=== PATIENT | male | born 1965 | race Asian ===

== ENCOUNTER 2024-07-26 07:52 | Inpatient (IN) ==
--- NOTE | 2024-07-26 08:05 | Pre Anesthesia Assessment ---
Date of Service July 26, 2024 Pre Sedation Assessment Vital Signs Temp Pulse Resp BP Pulse Ox O2 Del Method 07/26/24 08:04 107 H 07/26/24 07:54 97.9 F 102 H 23 183/115 H 95 Room Air 07/26/24 07:54 Room Air Cardiovascular + tachycardic Respiratory + respiratory effort normal Pre-Sedation Airway Assessment Smoking Status: Never smoker Hx Sleep Apnea: No Hx Difficult Intubation: No Thyromental Distance: > or= 3.5 Finger Breadths Oral Cavity: + Dental Abnormalities Mallampati Class: III ASA: ASA4 Procedure Planning Contraindications for Sedation: none Current Medications Reviewed: Yes Notes The planned sedation has been discussed with the patient. Informed Consent was obtained. I have identified the patient, determined the appropriateness of sedation and have assessed the patient immediately prior to the procedure. All medicine(s) and interventions are by my order.
--- NOTE | 2024-07-26 08:07 | Cardiology Consultation ---
Date of Consultation July 26, 2024 Assessment & Plan (1) STEMI (ST elevation myocardial infarction): Presentation consistent with anterior STEMI and recommend proceeding with emergent cardiac catheterization and likely primary PCI. No apparent contraindications to procedure. Discussed risks, benefits, alternatives of procedure with patient and they are willing to proceed. Further recommendations pending findings of coronary angiography. History of Present Illness History of Present Illness 58-year-old man here with acute chest pain and ECG concerning for acute PR. Patient seen emergently in the ED after heart alert activated en route. No prior cardiac history. Cardiac risk factors include hypertension. Denies other significant medical problems. Chest pain began approximately 1 hour prior to arrival. Denies similar symptoms in the past. Patient with ongoing 10 out of 10 chest pain despite 12 of morphine with EMS/in ED. Hemodynamically stable. ECG showed anterior ST elevations. Patient History Social History Smoking Status: Never smoker Preferred Language: [place] Island[place] Feels Safe at Home: Yes Review of Systems Review of Systems: Not obtained in the setting of emergency situation Physical Exam Physical Exam: General: In severe pain HEENT: Sclerae anicteric Lungs: Clear anteriorly Cardiac: Tachycardic, regular Vascular: 2+ radial Abdomen: Soft Extremities: Well perfused, no peripheral edema Neuro: Nonfocal Psych: Alert orient x3 Results & Data Vital Signs (Past 12 Hours) Vital Signs Temp Pulse Resp BP Pulse Ox O2 Del Method 07/26/24 08:04 107 H 07/26/24 07:54 97.9 F 102 H 23 183/115 H 95 Room Air 07/26/24 07:54 Room Air PG Care Time/CCT Total # of Minutes Spent Total Time Spent with Patient: Total time spent is greater than 50% in coordination of care (as documented) at patient's floor/unit and/or counseling patient: Coding Level of Care Code 52591 OFFICE CONSULT LVL Diagnoses STEMI (ST elevation myocardial infarction) I21.3
[2024-07-26] MEDS: fentaNYL citrate PF 100 MCG/2 ML VIAL ONE (08:49)
[2024-07-26] MEDS: MIDAZOLAM HCL 1 MG/ML 2ML VIAL ONE (08:50)
[2024-07-26] MEDS: HEPARIN (PORCINE) 1000 UNIT/ML 10 ML (CATH LAB USE ONLY) ONE ×2 (08:50→08:53)
[2024-07-26] MEDS: OPTIRAY 350 ONE (08:51)
[2024-07-26] MEDS ORDERED: ACETAMINOPHEN 325 MG TAB PO PRN (08:51)
[2024-07-26] MEDS: niCARdipine HCL INJ 2.5 MG/ML 10 ML AMP ONE (08:51)
[2024-07-26] MEDS: TICAGRELOR 90 MG TAB ONE (08:52)
[2024-07-26] MEDS: NITROGLYCERIN/D5W 100MCG/ML 20ML SYR ONE (08:52)
[2024-07-26] MEDS: ONDANSETRON INJ 2 MG/ML 2 ML VIAL ONE (08:52)
[2024-07-26] MEDS: FUROSEMIDE 40 MG/4 ML VIAL IV ONE (08:53)
--- NOTE | 2024-07-26 09:03 | Post Anesthesia Assessment ---
Date of Service July 26, 2024 Post Sedation Assessment Vital Signs Temp Pulse Resp BP Pulse Ox O2 Del Method 07/26/24 08:04 107 H 07/26/24 07:54 97.9 F 102 H 23 183/115 H 95 Room Air 07/26/24 07:54 Room Air Recovery Score Activity: Moves 4 extremities Respiration: Deep Breath/Cough Circulation: +/-20% PreAnes Value Consciousness: Fully Awake Oxygen Saturation: O2 needed for >90% Discharge Sedation Level of Care: Fast Track Phase II Post Sedation Plan On clinical assessment, the patient appears to have tolerated the sedation without complications. Patient is recovering as anticipated. Patient will continue to be monitored by nursing and may be discharged when sedation discharge criteria are met per below protocol. Upon Completions of procedure up to 15 minutes continue every 5 minute vital signs and the P.A.R. score; then discharge to a Phase I or Fast Track to Phase II per the following guidelines: * Discharge Patient to appropriate Phase II area if PAR is 8 or greater or ret urn to pre- procedure baseline. The post - procedure orders will be as directed. * If PAR score is less than 8 or not return to pre-procedure baseline then patient will follow Phase I monitoring till PAR is reached for Phase II. The Phase I may be done in procedure room or may call to secure a Phase I area. * If naloxone or flumazenil are used for reversal, hold in Phase I for continued monitoring from when last reversal dose was given for a minimum of 60 minutes or longer pending the nurse and/or physician discretion of patient condition before discharge to Phase II. Please call the Sedation Physician to re-evaluate and complete post-note for discharge to Phase II area. Do NOT discharge from procedure sedation or Phase 1 until post- sedation evaluation note is complete by procedure /sedation MD Sedation Discharge Instructions to be given to the patient at discharge to home.
[2024-07-26] MEDS ORDERED: Patient's ALLERGY Info needs ENTERED SCH (09:15)
[2024-07-26] MEDS: METOPROLOL TARTRATE 1 MG/ML VIAL IV ONE (09:17)
--- NOTE | 2024-07-26 09:26 | Cardiac Catheterization ---
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 Cardiac Status Clinical evaluation leading to the procedure CAD Presenation: STEMI Anginal Classification: CCS IV Diagnostic Physicians Name: Ken Rhodes MD Closure Device Recommendations: PCI without planned CABG Cardiac Cath Procedure Full Procedure Date July 26, 2024 Pre-Procedure Diagnosis Pre-Procedure Diagnosis: STEMI AUC Score AUC Score: 9 Post-Procedure Diagnosis Post-Procedure Diagnosis: Severe CAD, Successful PCI and Elevated Intracardiac Pressures Procedure(s) Performed Procedure(s) Performed: Coronary Angiography, Left Heart Cath and Drug Eluting Stent Dental Technician Metal Ken Rhodes MD Senior Commercial Loan Officer(s) Keo Estimated Blood Loss Estimated Blood Loss: 20 Medication(s) Medication(s): Fentanyl, Heparin, Lidocaine 1%, Nicardipine, Nitroglycerin and Versed Medication(s): Ticagrelor Summary of Findings Indication: STEMI/Heart Alert Access: 6 Fr right radial artery Catheters: EBU 3.5 guide, JR4 Findings: LM -normal caliber, 20-30% distal LAD -medium caliber, 30% ostial, 40-50% calcified proximal stenosis. Acute 100% mid LAD occlusion after takeoff of small D2. Circumflex -medium caliber 30% proximal disease, 50% proximal stenosis and mediu m OM 2. RCA -dominant, large caliber, 30% lateproximal and mid segment disease. 90% ostial RPDA. Large RPLB without significant disease. LVEDP -35 -- PCI -- Antithrombotic therapy: Heparin, ticagrelor Procedure: Left main cannulated with EBU 3.5 guide Ore Mixer 50 wire passed across lesion into distal vessel Mid LAD lesion predilated with 2.5 compliant balloon Dilated lesion stented with 3.0 x 38 mm Jeremie drug-eluting stent Stent post-dilated with 3.5 noncompliant balloon IC vasodilators administered for spasm Residual at least moderate stenosis in proximal LAD stented with second JESSI (3.0 x 18 mm Jeremie) overlapping proximal aspect of initial stent Stent post dilated with 3.5 NC Post procedure ROSANNA 3 flow, stents well expanded with minimal residual stenosis and no apparent cardiac complications. Severe residual stenosis and small jailed D3 with ROSANNA II flow Arterial Closure: TR band Summary: 1. Anterior STEMI/100% acute occluded mid LAD 2. Moderate to severe non-culprit coronary artery disease - 25 % distal left main 50% proximal OM 2 90% ostial RPDA 3. Elevated intracardiac filling pressure 4. Successful PCI of proximal to mid LAD with 2 overlapping drug-eluting stents (3.0 x 18, 3.0 x 38 mm [place]; postdilated with 3.5 NC). Recommendations: Admit to ICU for continued monitoring Loaded with ticagrelor 180 mg in [employer] Operator Continue dual-antiplatelet therapy for at least 1 year. 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 Medical management of residual coronary artery disease. Hemodynamics Rest Ao:: 181/119/154 Final Ao: 150/100/2024 LV: 144/35 Recommendations Recommendations: PCI without planned CABG Specimens Specimens: None Radiation Exposure (mGy) 1678 Contrast (mls) 100 Anesthesia Moderate [id number] Procedural Complication(s) None Disposition ICU I attest to the content of the Intraoperative Record and any orders documented therein. Any exceptions are noted below. [facility] Card Cath Procedure Codes Cardiac Catheterization Procedure 1: Cardiovascular Cath Procedures: 04259 Coronaries and LHC (+/-LV) Moderate Sedation Procedure 1: Sedation/Anesthesia: 50528 Mod Sedation by the same physician;Init15 Min Child Age 5 & Up Procedure 2: Sedation/Anesthesia: 65970 Mod Sedation by the same physician; Ea Add [id number] Minutes Stenting Procedure 1: Cardiovascular Stent Procedures: 66512 Perc transluminal revascularization of acute sub/total occl, aMI PG Care Time/CCT Total # of Minutes Spent Total Time Spent with Patient: Total time spent is greater than 50% in coordination of care (as documented) at patient's floor/unit and/or counseling patient:
--- NOTE | 2024-07-26 09:28 | History & Physical Report ---
Date of Service July 26, 2024 Assessment & Plan (1) STEMI (ST elevation myocardial infarction): Plan: Crushing chest pain with radiation to the back that began the morning of 07/26 shortly after waking EKG revealed anterior STEMI on arrival Heart alert was called Patient was taken emergently to the [facility] [employer] with Dr. Rhodes Anterior STEMI/100% acute occlusion of mid LAD Successful PCI of proximal to mid LAD with JESSI x 2 Echocardiogram ordered, pending No prior history of MD Patient does have a family history of MD (both mother and father had heart attacks in their 60s) Hx of HTN and HLD He reports he currently takes losartan and cholesterol medication (?At orvastatin) No PMHx of DM, PVD, MD, or DVT/PE Cardiology consult appreciated Atorvastatin, Brilinta, aspirin, metoprolol, losartan, and pantoprazole Trend troponin q6h A.m. CBC, BMP, A1c, fasting lipid panel (2) Hypertension: (3) Hyperlipidemia: Plan Disposition: Admit to ICU Full code Heart healthy, vegetarian diet VTE PPx: Will defer to ICU Admission and Anticipated Discharge Date Admission Date: July 26, 2024 History of Present Illness Chief Complaint: Chest pain Primary Care Provider: NO PCP Tien is a 58-year-old male with unknown PMH. He presented via EMS on the morning of 07/26 for crushing chest pain with radiation to the back. The chest pain started at 0730 this morning. En route, patient received morphine 12 mg IV, Zofran 4 mg IV, nitro spray, and 324 mg of aspirin. Chest pain remained 10 out of 10 despite morphine administration en route. EKG on arrival showed anterior STEMI; heart alert was called, and patient was emergently taken to the [facility] [employer] with Dr. Rhodes. Patient is seen post-cardiac cath. He reports that his pain is 2/10 at present; pain is located at the center/left side of his chest; he reports it is on both sides of his heart. He describes it as an achy pain like a "muscle ache". At this time, his only complaint is that he is tired. He reports that the pain t his morning was much worse. He woke up feeling fine, but then developed crushing pain in his chest shortly after brushing his tree then washing his face around 7 AM. The pain came on acutely. Radiation to the upper back. No radiation to the shoulders/jaw/arms. No prior history of MD or similar past episodes. The chest pain was not positional or pleuritic. No PMH of DM, PVD, or DVT/PE. He does have a history of hypertension and HLD, for which she takes losartan and a cholesterol medication daily (he believes this is atorvastatin, but is unsure). He also does have a family history of cardiac disease. Both his mother and his father had MIs in their 60s. No family members with MD or sudden cardiac that less than 55 years old. Patient denies smoking, tobacco use, alcohol use, or recreational drug use. No supplemental oxygen at baseline. Additionally, he reports that he does have a history of carpal tunnel in his right wrist, but is not having any numbness or tingling in his wrist at this time. Patient is mildly hypertensive at 152/101; SpO2 92% on 2L NC. Postcatheterization ROS: Patient endorses mild chest pain (2/10), generalized fatigue, and some nausea. Patient denies fever, chills, sweats, headache, crushing chest pain (as before), chest palpitations, SOB, cough, abdominal pain, vomiting, or numbness or tingling in the arms or legs. Allergies Allergy/AdvReac Type Severity Reaction Status Date / Time No Known Allergies Allergy Unverified 07/26/24 10:17 Past Med/Surg History Problem List (Updated 07/26/24 @ 15:14 by Cailin Vasquez MD) Hyperlipidemia Hypertension STEMI (ST elevation myocardial infarction) (Acute) Social History Smoking Status: Never smoker Hx Alcohol Use: No Hx Substance Use: No Preferred Language: Turkmen Communication Ability: Effective Office Secretary Required: No Beliefs That Will Affect Care: None Current Living Situation: Spouse Feels Safe at Home: Yes Safety Concerns: Feels Safe At This Time Review of Systems Review of Systems: See HPI above Physical Exam Physical Exam: General: no acute distress; pleasant affect; fatigued; non-toxic appearing; well-nourished; cooperative; SpO2 92% on 2L NC HEENT: normocephalic, atraumatic; no scleral icterus; PERRLA; vision and hearing grossly intact Neck: supple; no lymphadenopathy; trachea midline Skin: warm, dry without signs of tenting; no cyanosis; no rashes, bruising, lesi ons, or erythema noted CV: chest wall NTP; RRR; S1/S2 normal; no murmurs/rubs/gallops; pulses intact and symmetric at radial, DP, and PT RUE: Patient demonstrates ability to wiggle right fingers, and reports sensation is intact and symmetric in the right hand Lungs: no acute respiratory distress; symmetrical chest wall expansion; clear breath sounds across all lung zaman w/o adventitious sounds; no wheezing ABD: Soft, upper stomach is mildly TTP; BS present; no rebound/guarding; no distention MSK: no tics or fasciculations; no edema noted in the LEs b/l, nonerythematous; patient demonstrates ability to wiggle toes bilaterally Neuro: A&Ox3; normal mood and affect; fluent speech; no focal deficits; sensation grossly intact in the LEs b/l Results & Data Results & Data Vital Signs (Past 12 Hours) Vital Signs Temp Pulse Pulse Resp BP BP Pulse Ox 07/26/24 09:10 110 H 20 114/82 90 07/26/24 08:04 107 H 07/26/24 07:54 36.6 C 102 H 23 183/115 H 95 07/26/24 07:54 O2 Del Method O2 Flow Rate 07/26/24 09:10 Nasal Cannula 5 07/26/24 08:04 07/26/24 07:54 Room Air 07/26/24 07:54 Room Air Laboratory Results Abnormal lab results 07/26/24 Range/Units 08:39 Activ Coag Time Kaolin 238 H (94-140) SECONDS ECG Additional Comments: ECG on arrival revealed sinus tachycardia and ST elevation in the anterior leads concerning for STEMI; 105 bpm; QTc 449 Code Status & VTE Plan Code Status Full code VTE Prophylaxis Plan VTE Prophylaxis will be ordered: Yes Supervising Physician Co-Signing Physician Notes I personally examined the patient and verified all delgado points of history and exam, discussed case, and agree with decision making with Jesenia Anne PA-C feeling better with CP - now just a dull ache. stomach a little upset vitals noted nad heent nc at mmm breathing unlabored no accessory muscles good effort skin without rashes pallor or icterus STEMI - s/p stenting -med management -lifestyle change (he actually just recently started on positive changes) otherwise as above PG Care Time/CCT Total # of Minutes Spent Total Time Spent with Patient: Total time spent is greater than 50% in coordination of care (as documented) at patient's floor/unit and/or counseling patient: [place] [address] INT INP/OBS CARE 3/75MIN Patient Type New Medical Decision Making High Complexity Diagnoses STEMI (ST elevation myocardial infarction) I21.3 Hypertension I10 Hyperlipidemia E78.5
[2024-07-26] MEDS: FAMOTIDINE 20MG/5ML IV PUSH IV ONE (09:40)
[2024-07-26] MEDS: ATORVASTATIN 40 MG TAB PO SCH (10:42)
[2024-07-26] MEDS: ASPIRIN 81 MG ECTAB PO SCH (11:38)
[2024-07-26] MEDS: ICU Protocol for HYPERglycemia SCH (11:39)
[2024-07-26] MEDS: LOSARTAN POTASSIUM 25 MG TAB PO SCH (11:39)
[2024-07-26] MEDS: PANTOprazole 40 MG TAB PO SCH (11:39)
[2024-07-26] MEDS: ROSUVASTATIN CALCIUM 20 MG TAB PO SCH (11:39)
--- NOTE | 2024-07-26 15:04 | Emergency Department Note ---
Impression & Plan STEMI (ST elevation myocardial infarction) ED Provider Note CHIEF COMPLAINT: Chest pain, heart alert HISTORY OF PRESENT ILLNESS: This 58-year-old male patient past medical history of hypertension and hyperlipidemia presents to the emergency department with complaints of substernal chest pain that woke him from sleep at approximately 730 this morning. Patient presented by ambulance after receiving aspirin, nitroglycerin and morphine. EKG reveals anterior ST elevation NE. Heart alert was called prior to arrival by my medical command. Patient did receive several doses of morphine and route. He currently denies any history of NE and states he has not a smoker. REVIEW OF SYSTEMS: A review of systems was performed with positives and pertinent negatives listed in the history of present illness. 10 systems were reviewed and are otherwise negative. ALLERGIES: see below MEDICATIONS: see below PMH: see below SOCIAL HISTORY: see below DDx: Acute coronary syndrome, GERD, peptic ulcer disease, pneumothorax, aortic dissection among others. PHYSICAL EXAM: Vital signs reviewed. General: Well-appearing 58-year-old male, in significant discomfort. HEENT: No scleral icterus, PERRLA, neck supple. Moist mucous membranes. Cardiovascular: Regular rate and rhythm, no extra sounds. Pulmonary: Clear to auscultation bilaterally, normal work of breathing. Abdomen: Soft, nontender, nondistended, positive bowel sounds. Musculoskeletal: Atraumatic, no peripheral edema. Neurologic: Patient awake alert and oriented x 3, speech is clear Skin: Warm, dry, no rash EMERGENCY DEPARTMENT COURSE/MDM: This patient was evaluated and appeared to be in no significant distress. a heart alert was called prior to arrival and Dr. Rhodes and the [facility]ork[facility] Techn[facility] team arrived at the patient's bedside patient was taken to the Fork[facility] Techn[facility] immediately for percutaneous intervention. Please see Dr. Vivek marmolejo's notes for further details of the procedure. MONITORING: An order for cardiac monitoring was placed and the patient is noted to be in a sinus tachycardia at 107 beats per minute. EKG: To my interpretation reveals a sinus tachycardia at [address] elevation, inferior ST depression. QTc of 449. DISPOSITION: [facility] Techn[facility] Past Med/Surg History Problem List (Updated 07/26/24 @ 15:14 by Cailin Vasquez MD) Hyperlipidemia Hypertension STEMI (ST elevation myocardial infarction) (Acute) Social History Smoking Status: Never smoker Hx Alcohol Use: No Hx Substance Use: No Preferred Language: Latvian Communication Ability: Effective Resolution Expert Required: No Beliefs That Will Affect Care: None Current Living Situation: Spouse Feels Safe at Home: Yes Safety Concerns: Feels Safe At This Time Allergies Allergies Allergy/AdvReac Type Severity Reaction Status Date / Time No Known Allergies Allergy Unverified 07/26/24 10:17 Results & Data (ED) Vital Signs Vital Signs - 24 hr 07/26/24 07:54 07/26/24 07:54 07/26/24 08:04 Temperature 36.6 C Temperature Source Oral Pulse Rate 102 H 107 H Respiratory Rate 23 Respiratory Effort / Characteristics Non-Labored Spontaneous Non-Labored Spontaneous Respiratory Depth Normal Normal Blood Pressure 183/115 H Blood Pressure Mean 137 Blood Pressure Position Lying Pulse Oximetry 95 Oxygen Delivery Method Room Air Room Air Sepsis Recent Fever Within 48 Hours No Sepsis New/Unexplained Change in Mental Status No Sepsis Action Taken by Nursing Physician Notified Home Medications Current Medication List: was personally reviewed by me Laboratory Data Attestation: I reviewed the patient's lab results. Lab Results 07/26/24 07/26/24 07/26/24 Range/Units 08:22 08:39 08:43 Activ Coag Time Kaolin 238 H 238 H 299 H (94-140) SECONDS Administered Medications Aspirin (Aspirin 81 Mg Ectab) 81 mg PO [facility] Stop: 08/25/24 08:59 Last Admin: 07/26/24 11:38 Dose: 81 mg Documented By: VAHID Losartan Potassium (Losartan Potassium 25 Mg Tab) 25 mg PO QAM [facility] Stop: 08/25/24 12:59 Last Admin: 07/26/24 11:39 Dose: 25 mg Documented By: VAHID Miscellaneous (Icu Protocol For Hyperglycemia) 1 each N/A ACHS [facility] Stop: 07/28/24 11:29 Last Admin: 07/26/24 11:39 Dose: Not Given Documented By: VAHID Pantoprazole Sodium (Pantoprazole 40 Mg Tab) 40 mg PO DAILY [facility] Stop: 08/25/24 08:59 Last Admin: 07/26/24 11:39 Dose: 40 mg Documented By: VAHID Rosuvastatin Calcium (Rosuvastatin Calcium 20 Mg Tab) 20 mg PO QAM [facility] Stop: 08/25/24 09:59 Last Admin: 07/26/24 11:39 Dose: 20 mg Documented By: VAHID Discontinued Medications Atorvastatin Calcium (Atorvastatin 40 Mg Tab) 80 mg PO QAM [facility] Stop: 08/25/24 08:59 Last Admin: 07/26/24 10:42 Dose: Not Given Documented By: VAHID Famotidine (Famotidine 20mg/5ml Iv Push) Confirm Administered Dose 20 mg IV .STK-MED ONE Stop: 07/26/24 09:13 Last Admin: 07/26/24 09:40 Dose: 20 mg Documented By: LAMINE Fentanyl Citrate (Fentanyl Citrate Pf 100 Mcg/2 Ml Vial) Confirm Administered Dose 100 mcg .ROUTE .STK-MED ONE Stop: 07/26/24 07:57 Last Increment: 07/26/24 08:49 Dose: 50 mcg Documented By: MARY Furosemide (Furosemide 40 Mg/4 Ml Vial) Confirm Administered Dose 40 mg IV .STK- MED ONE Stop: 07/26/24 08:45 Last Admin: 07/26/24 08:53 Dose: 40 mg Documented By: MARY Heparin Sodium (Porcine) (Heparin (Porcine) 1000 Unit/Ml 10 Ml ([facility] Technician Use Only)) Confirm Administered Dose 10,000 units .ROUTE .STK-MED ONE Stop: 07/26/24 07:57 Last Admin: 07/26/24 08:50 Dose: 11,000 units Documented By: MARY Heparin Sodium (Porcine) (Heparin (Porcine) 1000 Unit/Ml 10 Ml (Forklift Technician Use Only)) Confirm Administered Dose 10,000 units .ROUTE .STK-MED ONE Stop: 07/26/24 08:27 Last Admin: 07/26/24 08:53 Dose: Not Given Documented By: MARY Heparin Sodium/Sodium Chloride (Heparin In Nss Infusion 1000 Unit/500 Ml (2 U/Ml) Bag) Confirm Administered Dose 3,000 units IV .STK-MED ONE Stop: 07/26/24 07:57 Last Admin: 07/26/24 08:50 Dose: 3,000 units Documented By: RYANNE Ioversol (Optiray 350) Confirm Administered Dose 1 ml .ROUTE .STK-MED ONE Stop: 07/26/24 07:58 Last Admin: 07/26/24 08:51 Dose: 100 ml Documented By: RYANNE Metoprolol Tartrate (Metoprolol Tartrate 1 Mg/Ml Vial) Confirm Administered Dose 5 mg IV .STK-MED ONE Stop: 07/26/24 09:17 Last Admin: 07/26/24 09:17 Dose: 5 mg Documented By: AYAZF Midazolam HCl (Midazolam Hcl 1 Mg/Ml 2ml Vial) Confirm Administered Dose 2 mg .ROUTE .STK-MED ONE Stop: 07/26/24 07:57 Last Admin: 07/26/24 08:50 Dose: 2 mg Documented By: MARY Nicardipine HCl (Nicardipine Hcl Inj 2.5 Mg/Ml 10 Ml Amp) Confirm Administered Dose 25 mg .ROUTE .STK-MED ONE Stop: 07/26/24 07:57 Last Admin: 07/26/24 08:51 Dose: 25 mg Documented By: MARY Nitroglycerin/Dextrose (Nitroglycerin/D5w 100mcg/Ml 20ml Syr) Confirm Administered Dose 2,000 mcg .ROUTE .STK-MED ONE Stop: 07/26/24 07:58 Last Admin: 07/26/24 08:52 Dose: 2,000 mcg Documented By: MARY Ondansetron HCl (Ondansetron Inj 2 Mg/Ml 2 Ml Vial) Confirm Administered Dose 4 mg .ROUTE .STK-MED ONE Stop: 07/26/24 08:40 Last Admin: 07/26/24 08:52 Dose: 4 mg Documented By: MARY Ticagrelor (Ticagrelor 90 Mg Tab) Confirm Administered Dose 180 mg .ROUTE .STK- MED ONE Stop: 07/26/24 08:07 Last Admin: 07/26/24 08:52 Dose: 180 mg Documented By: MARY Discharge Plan Visit Data Chief Complaint: Heart Alert ED Provider: Cailin Vasquez Discharge Problem: STEMI (ST elevation myocardial infarction) Patient Disposition: Admitted As Inpatient Discharge Instructions Interventions: ED Discharge Assessment Last Done: 07/26/24 08:02 Discharge Problem: STEMI (ST elevation myocardial infarction) Qualifiers: Involved coronary artery: LAD coronary artery Qualified Code(s): I21.02 - ST elevation (STEMI) myocardial infarction involving left anterior descending coronary artery
--- NOTE | 2024-07-26 15:31 | Critical Care Consultation ---
Date of Consultation July 26, 2024 Assessment & Plan (1) STEMI (ST elevation myocardial infarction): (2) Hypertension: (3) Hyperlipidemia: Plan Patient hemodynamically stable status post STEMI and cardiac cath with 2 drug- eluting stents to the LAD. Currently on goal-directed therapy with dual antiplatelets, beta-kameron, MAGDALENE inhibitor and high-dose statin therapy. Monitor in the ICU for the next 24 hours. Follow-up telemetry. Trend troponins and follow-up echocardiogram. Will obtain CBC and CMP with next troponin draw. Thank you for the consult. ICU services will continue to follow along with you. Disposition deferred to cardiology. History of Present Illness Reason for Consultation: STEMI Attending Physician: Ivan Woods DO History of Present Illness 58-year-old male with a past medical history of hypertension who was presenting to the hospital via EMS this morning due to chest pain. STEMI alert was called and the patient was taken back to the [facility]. Cath revealed 100% occluded mid LAD and moderate to severe nonculprit coronary artery disease. Successful PCI to the proximal to mid LAD with 2 overlapping drug-eluting stents. Elevated intracardiac filling pressures are noted. He is doing well post cath and has not had any significant hemodynamic issues. He did receive 40 mg of IV Lasix in the [facility]. He had a mild hematoma in his right wrist which is largely resolved with the use of a TR band. Allergies Allergy/AdvReac Type Severity Reaction Status Date / Time No Known Allergies Allergy Unverified 07/26/24 10:17 Patient History Social History Smoking Status: Never smoker Hx Alcohol Use: No Hx Substance Use: No Preferred Language: Barbadian Communication Ability: Effective Merchandise Marker Required: No Beliefs That Will Affect Care: None Current Living Situation: Spouse Feels Safe at Home: Yes Safety Concerns: Feels Safe At This Time Review of Systems Review of Systems: All systems reviewed & are unremarkable except as noted in HPI & below Physical Exam Physical Exam: Constitutional: Patient appears to be of their stated age. Patient is in no apparent distress. Patient is well-developed. Eyes: Pupils are equal round and reactive to light. Conjunctivae are normal. Anicteric sclera. Ears nose, mouth and throat: No perioral cyanosis. Neck: Trachea is midline. Visual inspection is normal. Respiratory: Clear to auscultation bilaterally. No use of accessory muscles. No significant clubbing noted. Cardiovascular: Regular rate and rhythm. No murmurs. No edema. Gastrointestinal: Normal bowel sounds, soft, nontender and nondistended. No hepatosplenomegaly noted. Musculoskeletal: No cyanosis. Patient is able to move all extremities. Strength is 5 out of 5 in the upper and lower extremities. Skin: No rashes, warm dry and intact. Neurologic: No obvious focal neurological deficits seen. Psychiatric: Alert and oriented x3 with a euthymic affect. Results & Data Results & Data Vital Signs (Past 12 Hours) Vital Signs Temp Pulse Pulse Resp BP BP Pulse Ox 07/26/24 12:36 70 16 97 07/26/24 12:03 71 12 98 07/26/24 12:00 147/95 H 07/26/24 11:51 75 14 97 07/26/24 11:33 77 16 98 07/26/24 11:00 130/90 07/26/24 11:00 79 24 97 07/26/24 10:33 84 15 97 07/26/24 10:30 134/92 07/26/24 10:21 07/26/24 10:08 36.7 C 85 18 152/101 H 92 07/26/24 09:25 110 H 20 140/96 90 07/26/24 09:17 108 H 07/26/24 09:10 110 H 20 114/82 90 07/26/24 08:04 107 H 07/26/24 07:54 36.6 C 102 H 23 183/115 H 95 07/26/24 07:54 O2 Del Method O2 Flow Rate 07/26/24 12:36 07/26/24 12:03 07/26/24 12:00 07/26/24 11:51 07/26/24 11:33 07/26/24 11:00 07/26/24 11:00 07/26/24 10:33 07/26/24 10:30 07/26/24 10:21 Nasal Cannula 2 07/26/24 10:08 Nasal Cannula 07/26/24 09:25 Nasal Cannula 5 07/26/24 09:17 07/26/24 09:10 Nasal Cannula 5 07/26/24 08:04 07/26/24 07:54 Room Air 07/26/24 07:54 Room Air Coding Level of Care Code 52389 IN/OBS CONSULT LVL 3,45M Diagnoses STEMI (ST elevation myocardial infarction) I21.02 Involved coronary artery: LAD coronary artery Hypertension I10 Hyperlipidemia E78.5 (1) STEMI (ST elevation myocardial infarction) Involved coronary artery: LAD coronary artery Qualified Code(s): I21.02 - ST elevation (STEMI) myocardial infarction involving left anterior descending coronary artery
[2024-07-26] MEDS: ONDANSETRON INJ 2 MG/ML 2 ML VIAL IV PRN (16:18)
[2024-07-26] MEDS ORDERED: ALUMINUM/MAGNESIUM SUSP 30 ML UDC PO PRN (17:33)
[2024-07-26] MEDS: ALUMINUM/MAGNESIUM SUSP 30 ML UDC ONE (17:44)
[2024-07-26] MEDS: METOPROLOL TARTRATE 25 MG TAB PO SCH (18:31)
[2024-07-26] MEDS: HYDROmorphone INJ 0.5 MG/0.5 ML SYR IV STA (19:11)
[2024-07-26] MEDS: HYDROmorphone INJ 0.5 MG/0.5 ML SYR ONE (19:36)
[2024-07-26 19:41] LABS: Basophils # (auto) 0.04 K/uL (0.00-0.20); Basophils % (auto) 0.3 %; Hematocrit (blood only) 44.3 % (42.0-52.0); Hemoglobin 15.9 g/dl (14.0-18.0); Immature Granulocytes # (auto) 0.06 K/uL (0.01-0.20); Immature Granulocytes % (auto) 0.4 %; Lymphocytes # (auto) 0.79 K/uL (1.20-3.40); Lymphocytes % (auto) 5.8 %; Mean Corpuscular Hemoglobin 29.1 pg (25.0-34.0); Mean Corpuscular Hgb Conc 35.9 g/dL (32.0-36.0); Mean Platelet Volume 11.3 fL (9.4-12.4); Monocytes # (auto) 0.59 K/uL (0.11-0.59); Monocytes % (auto) 4.3 %; Neutrophils # (auto) 12.09 K/uL (1.40-6.50); Neutrophils % (auto) 89.2 %; Platelet Count 216 K/uL (130-400); RDW Coefficient of Variation 12.3 % (11.5-14.5); RDW Standard Deviation 35.8 fL (36.4-46.3); Red Blood Count 5.47 M/uL (4.70-6.10); White Blood Count 13.57 K/ul (4.8-10.8)
[2024-07-26 19:53] LABS: Albumin Globulin Ratio 1.3 (0.9-2); Albumin Level 4.7 gm/dl (3.4-5.0); BUN Creatinine Ratio 13.3 (10-20); Bilirubin,Total 0.8 mg/dl (0.2-1.0); Calcium 9.7 mg/dl (8.6-10.3); Creatinine Clr Calc Pharmacy 54.1 ml/min; Globulin 3.5 gm/dl (2.5-4.0); Magnesium 1.8 mg/dl (1.7-2.4); Potassium 4.2 mmol/L (3.5-5.1); Total Protein 8.2 gm/dl (6.0-8.3)
[2024-07-26] MEDS ORDERED: STAT IV Infusion **Titration per Protocol STA (19:55)
--- NOTE | 2024-07-26 19:55 | Communication Note ---
Date of Service: July 26, 2024 At around 7 PM patient had severe abdominal pain and a stat KUB was ordered which revealed a nonspecific gas pattern. Chest x-ray ordered as well was la rgely unremarkable. Patient was given 0.5 mg of Dilaudid and stat lactate, CBC and CMP were ordered. EKG from earlier today was unremarkable status post cath. Will order stat CTA of the chest and abdomen to rule out aortic dissection. I did do an abdominal ultrasound which did not reveal any evidence of free fluid. Lactate was mildly elevated 3.1. Will start the patient on nicardipine infusion given his elevated blood pressures with goal systolic blood pressure 160 unless there is evidence of aortic dissection on CT.
[2024-07-26] MEDS: OPTIRAY 320 125ml IV ONE (20:13)
[2024-07-26] MEDS: niCARdipine 25 MG in SODIUM CHLORIDE 0.9% 240 ML IV SCH (20:19)
[2024-07-26] MEDS: PANTOprazole 40 MG/10 ML SYR IV SCH (20:24)
[2024-07-26] MEDS: LACTATED RINGER'S 1,000 ML IV SCH (20:29)
--- NOTE | 2024-07-26 21:05 | CT Scan Report ---
Exam(s): CTA CHEST W/WO Contrast IV Amt: 118 cc's optiray 320 EXAM: CT Angiography Chest Without and With Intravenous Contrast CLINICAL HISTORY: severe chest pain. TECHNIQUE: Axial computed tomographic angiography images of the chest without and with intravenous contrast using aortic dissection protocol. CTDI is 28. 47 mGy and DLP is 1461.25 mGy-cm. Automated exposure control was utilized for the study. A dose lowering technique was utilized adhering to the principles of ALARA. MIP reconstructed images were created and reviewed. CONTRAST: Patient received 118 cc's optiray 320 of IV contrast COMPARISON: No relevant prior studies available. FINDINGS: Aorta: The thoracic aorta is normal in caliber, with the mid ascending aorta measuring 2.8 x 3 cm. No dissection, aneurysm or intimal wall abnormality identified on precontrast imaging. No acute periaortic abnormality. Pulmonary arteries: No evidence for pulmonary embolism. Great vessels of aortic arch: No acute findings. No dissection. No arterial occlusion or significant stenosis. Lungs: Dependent subsegmental changes in the posterior aspect of both lower lobes and minimally in the posterior upper lobes is noted. There is subtle heterogeneous attenuation centrally and posteriorly in the right upper lobe. No mass. No consolidation. Pleural space: Unremarkable. No significant effusion. No pneumothorax. Heart: The cardiac chambers are normal in caliber. There is prominent coronary artery calcification in the LAD with a probable stent noted. No pericardial effusion. Bones/joints: No acute fracture. No dislocation. Soft tissues: Unremarkable. Lymph nodes: Unremarkable. No enlarged lymph nodes. IMPRESSION: 1. The thoracic aorta is normal in caliber, with the mid ascending aorta measuring 2.8 x 3 cm. No dissection, aneurysm or intimal wall abnormality identified on precontrast imaging. No acute periaortic abnormality. 2. No evidence for pulmonary embolism. 3. Dependent subsegmental changes in the posterior aspect of both lower lobes and minimally in the posterior upper lobes appears greater than expected for dependent atelectasis, which raises the concern for potential anomalies bibasilar pneumonia. Please correlate clinically. 4. There is subtle heterogeneous attenuation centrally and posteriorly in the right upper lobe, suggesting a component of mild air trapping. No pleural effusion or pneumothorax. Electronically signed by: Richardson Mckeon MD 07/26/24 21:03 PM
--- NOTE | 2024-07-26 21:10 | CT Scan Report ---
Exam(s): CTA ABDOMEN + PELVIS With Contrast IV Amt: 118 cc's optiray 320 EXAM: CT Angiography Abdomen and Pelvis With Intravenous Contrast CLINICAL HISTORY: severe abdominal pain. TECHNIQUE: Axial computed tomographic angiography images of the abdomen and pelvis with intravenous contrast. CTDI is 17.1 mGy and DLP is 1082.24 mGy-cm. Automated exposure control was utilized for the study. A dose lowering technique was utilized adhering to the principles of ALARA. MIP reconstructed images were created and reviewed. CONTRAST: Patient received 118 cc's optiray 320 of IV contrast COMPARISON: No relevant prior studies available. FINDINGS: VASCULATURE: Aorta: No acute findings. No abdominal aortic aneurysm. No dissection. Celiac trunk and mesenteric arteries: Inferior deflection of the proximal celiac artery without significant ostial stenosis. The SMA is patent. The DARIEL is patent proximally. Renal arteries: No acute findings. No occlusion or significant stenosis. Iliac arteries: No acute findings. No occlusion or significant stenosis. Lung bases: For findings regarding the lung bases, please see the CT report of the chest performed concurrently. No consolidation. ABDOMEN: Liver: Unremarkable. No mass. Gallbladder and bile ducts: Unremarkable. No calcified stones. No ductal dilation. Pancreas: Unremarkable. No ductal dilation. No mass. Spleen: Unremarkable. No splenomegaly. Adrenals: Unremarkable. No mass. Kidneys and ureters: Unremarkable. No hydronephrosis. No solid mass. Stomach and bowel: No evidence for bowel obstruction. Scattered material in distal small bowel loops in the right lower quadrant is noted without significant dilation. Mucosal prominence is noted in decompressed segments of the colon. No pericolonic inflammatory changes. No appreciable diverticulitis. PELVIS: Appendix: No findings to suggest acute appendicitis. Bladder: The bladder is mildly distended with excreted contrast. No bladder wall thickening noted. Reproductive: Prostatic hypertrophy suggested. ABDOMEN and PELVIS: Intraperitoneal space: Unremarkable. No significant fluid collection. No free air. Bones/joints: No significant degenerative changes throughout the thoracolumbar spine. No acute osseous abnormality. No dislocation. Soft tissues: Unremarkable. Lymph nodes: Unremarkable. No enlarged lymph nodes. IMPRESSION: 1. Negative CTA examination of the abdomen and pelvis. No aortic dissection or aneurysm. No appreciable stenosis. 2. No evidence for bowel obstruction. Scattered material in distal small bowel loops in the right lower quadrant is noted without significant dilation. This suggests mild enteritis with delayed transit through the small bowel. Mucosal prominence of the decompressed segments of the colon is presumed normal variation. Subtle colitis is considered much less likely. No free intraperitoneal fluid or pneumoperitoneum. Incidental normal caliber appendix. Electronically signed by: Richardson Mckeon MD 07/26/24 21:09 PM
[2024-07-26] MEDS: TICAGRELOR 90 MG TAB PO SCH (21:13)
--- NOTE | 2024-07-26 21:15 | Electrocardiogram Report ---
Test Reason : Blood Pressure : */* mmHG Vent. Rate : 105 BPM Atrial Rate : 105 BPM P-R Int : 136 ms QRS Dur : 86 ms QT Int : 340 ms P-R-T Axes : 52 29 -7 degrees QTcB Int : [address] elevation consider anterior injury or acute infarct ACUTE [place] / STEMI Abnormal ECG When compared with ECG of 26-Jul-2024 07:55, ST elevation now present in Lateral leads Confirmed by Kan Tony ([id number]) on 07/26/2024 9:14:53 PM Referred By: REFERRED SELF Confirmed By: Kan Tony
--- NOTE | 2024-07-26 21:20 | XCELERA ---
[id number]
[2024-07-26] MEDS: NITROGLYCERIN 2% OINTMENT 30GM TUBE EXT SCH (21:41)
[2024-07-26 21:59] LABS: Hep B Surface Ag with confirm Negative (Negative)
--- NOTE | 2024-07-26 21:59 | XRay Report ---
SINGLE VIEW CHEST CLINICAL HISTORY: Upper abdominal pain. FINDINGS: An AP, portable, upright chest radiograph is obtained. No prior studies are available for c omparison at the time of dictation. The cardiomediastinal silhouette is unremarkable. There are mild airspace opacities at the right lung base. No large pleural effusion or pneumothorax is seen. The bon y thorax is grossly intact. IMPRESSION: There are mild airspace opacities at the right lung base. This could represent atelectasi s versus a mild pneumonitis. Clinical correlation will be required and radiographic follow-up to reso lution is recommended. ACT 112: Negative or not required by law. Electronically signed by: Familia Mckinnon M.D. 07/26/2024 9:57 PM
[2024-07-26 22:05] LABS: Hep C Ab Rflx HepCQuant RNA Negative (Negative)
--- NOTE | 2024-07-26 22:20 | XRay Report ---
KUB CLINICAL HISTORY: Generalized abdominal pain. FINDINGS: An AP, portable, supine abdominal radiograph is obtained. No prior studies are available fo r comparison at the time of dictation. There is a nonobstructed abdominal bowel gas pattern. Mild fec al retention is noted in the right colon. No evidence of intraperitoneal free air is seen on this sup ine image. There is excreted IV contrast within the bladder lumen. Pelvic phlebolith are observed. Th e bony structures appear intact. IMPRESSION: No acute abnormality is identified. Electronically signed by: Familia Mckinnon M.D. 07/26/2024 10:19 PM
[2024-07-26 22:57] LABS: Adenovirus PCR Not Detected (NotDetected); Bordetella parapertussis PCR Not Detected (NotDetected); Bordetella pertussis PCR Not Detected (NotDetected); Chlamydia pneumoniae PCR Not Detected (NotDetected); Coronavirus 229E PCR Not Detected (NotDetected); Coronavirus CoV-2 (COVID19)PCR Not Detected (NotDetected); Coronavirus HKU1 PCR Not Detected (NotDetected); Coronavirus NL63 PCR Not Detected (NotDetected); Coronavirus OC43PCR Not Detected (NotDetected); Human Metapneumovirus PCR Not Detected (NotDetected); Influenza A PCR Not Detected (NotDetected); Influenza B PCR Not Detected (NotDetected); Mycoplasma pneumoniae PCR Not Detected (NotDetected); Parainfluenza Virus 1 PCR Not Detected (NotDetected); Parainfluenza Virus 2 PCR Not Detected (NotDetected); Parainfluenza Virus 3 PCR Not Detected (NotDetected); Parainfluenza Virus 4 PCR Not Detected (NotDetected); Respiratory Syncytial VirusPCR Not Detected (NotDetected); Rhinovirus/Enterovirus PCR Not Detected (NotDetected)
[2024-07-26] MEDS: HYDROmorphone INJ 0.5 MG/0.5 ML SYR IV PRN (23:46)
[2024-07-27 02:40] LABS: Basophils # (auto) 0.02 K/uL (0.00-0.20); Basophils % (auto) 0.1 %; Hematocrit (blood only) 43.5 % (42.0-52.0); Hemoglobin 15.1 g/dl (14.0-18.0); Immature Granulocytes # (auto) 0.05 K/uL (0.01-0.20); Immature Granulocytes % (auto) 0.4 %; Lymphocytes # (auto) 0.96 K/uL (1.20-3.40); Lymphocytes % (auto) 6.8 %; Mean Corpuscular Hemoglobin 28.4 pg (25.0-34.0); Mean Corpuscular Hgb Conc 34.7 g/dL (32.0-36.0); Mean Corpuscular Volume 81.8 fL (80.0-100.0); Mean Platelet Volume 11.5 fL (9.4-12.4); Monocytes # (auto) 0.83 K/uL (0.11-0.59); Monocytes % (auto) 5.9 %; Neutrophils # (auto) 12.19 K/uL (1.40-6.50); Neutrophils % (auto) 86.8 %; Platelet Count 237 K/uL (130-400); RDW Coefficient of Variation 12.4 % (11.5-14.5); RDW Standard Deviation 36.4 fL (36.4-46.3); Red Blood Count 5.32 M/uL (4.70-6.10); White Blood Count 14.05 K/ul (4.8-10.8)
[2024-07-27 02:51] LABS: Albumin Level 4.4 gm/dl (3.4-5.0); BUN Creatinine Ratio 13.1 (10-20); Bilirubin Direct 0.1 mg/dl (0-0.2); Bilirubin,Total 0.8 mg/dl (0.2-1.0); Calcium 9.4 mg/dl (8.6-10.3); Chol HDL Ratio 4.1 (0-5); Creatinine Clr Calc Pharmacy 53.3 ml/min; Total Protein 7.7 gm/dl (6.0-8.3)
--- NOTE | 2024-07-27 07:13 | Hospitalist Progress Note ---
Date of Service July 27, 2024 Assessment & Plan (1) STEMI (ST elevation myocardial infarction): (2) Hypertension: (3) Hyperlipidemia: Plan STEMI Pt with no prior hx of [place] presented to ED on 07/26 with Crushing chest pain with radiation to the back that began the morning shortly after waking. EKG revealed anterior STEMI on arrival. Pt underwent emergent cardiac cath with Dr. Rhodes where he was found to have 100% acute occlusion of mid LAD. Successful PCI of proximal to mid LAD with JESSI x 2. Echocardiogram was ordered, trop trended q6h. Pt admitted to ICU. AM labs ordered for A1c and fasting lipid panel. Cardiology consult appreciated Atorvastatin, Brilinta, aspirin, metoprolol, losartan, and pantoprazole - Echocardiogram findings: Mild LVH, 40-45% EF, Apical akinesis, severe hypokinesis at mid anteroseptum/septum, Mild hypokinesis at mid anterior/inferior. - A1c= 5.8% - Downgraded to PCU - Started metoprolol tartrate 25mg PO BID - Aspirin 81 mg PO qd - ticagrelor 90mg PO BID - Acetaminophen 650mg PO q4h PRN for pain - Nitro paste 0.5 inch q6h HTN - Nicardipine 25mg IV started in AM for BP control- Discontinued - Losartan 25mg PO HLD Lipids: TCho- 161, LDL- 105, HDL-39, triglycerides= 85 - Rosuvastatin 20mg PO Disposition: Downgraded to PCU Full code Heart healthy, vegetarian diet VTE PPx: Admission and Anticipated Discharge Date Admission Date: July 26, 2024 Supervising Physician Co-Signing Physician Notes I personally examined the patient and verified all delgado points of history and exam, discussed case, and agree with decision making with Dr Lange mild lateral chest pain and some belly pain no BM vitals noted nad heent nc at mmm breathing unlabored no accessory muscles good effort skin without rashes pallor or icterus abd mild distention mild LLQ tenderness STEMI - s/p stenting -med management, appreciate cardiology input -lifestyle change (he actually just recently started on positive changes) constipation - miralax, senna otherwise as above Subjective Pt is a 58 yo male who presented to ED on 07/26 with crushing chest pain while walking. He underwent cardiac catheterization and mid LAD was stented. Pt was admitted to the ICU. Overnight, pt c/o severe abdominal pain. KUB, CTA, CT of chest and abdomen and abdominal US performed. Noted to have right colonic stool burden and possible colitis. NO PE, aortic dissection noted. Lactate was 3.1. Pt given Dilaudid and nicardipine drip for BP control. This morning, pt reports mild chest pain which is primarily soreness. Abdominal pain is improved to 2-3/10. he got up to commode with assist from nurse, but was unable to have a BM. Pt denies SOB, nausea, vomiting, numbness/tingling, dizziness Review of Systems Review of Systems: As per HPI Physical Exam Physical Exam: Constitutional: Patient appears to be of their stated age. Patient is in no apparent distress. Patient is well-developed. Eyes: Conjunctivae are normal. Anicteric sclera. Neck: Trachea is midline. Visual inspection is normal. Respiratory: Clear to auscultation bilaterally. No use of accessory muscles. No significant clubbing noted. Cardiovascular: Regular rate and rhythm. No murmurs. No edema. Gastrointestinal: Normal bowel sounds, soft, nontender and nondistended. Musculoskeletal: No cyanosis. Patient is able to move all extremities. Strength is 5 out of 5 in the upper and lower extremities. Skin: No rashes, warm dry and intact. Neurologic: No obvious focal neurological deficits seen. Psychiatric: Alert and oriented x3 with a euthymic affect. Results & Data Results & Data Vital Signs (Past 12 Hours) Vital Signs Temp Pulse Resp BP Pulse Ox O2 Flow Rate 07/27/24 06:00 36.6 C 07/27/24 05:00 36.8 C 07/27/24 04:30 66 16 97 07/27/24 04:09 73 19 98 07/27/24 04:00 36.7 C 07/27/24 03:33 72 19 98 07/27/24 03:30 117/76 07/27/24 03:30 117/76 07/27/24 03:21 94 H 22 99 07/27/24 03:00 113/68 07/27/24 03:00 37 C 07/27/24 02:54 82 16 98 07/27/24 02:36 77 15 98 07/27/24 02:30 118/74 07/27/24 02:21 73 18 96 07/27/24 02:15 75 19 95 07/27/24 02:00 117/73 07/27/24 02:00 36.9 C 07/27/24 01:54 76 21 94 07/27/24 01:48 80 22 95 07/27/24 01:45 127/82 07/27/24 01:45 127/82 07/27/24 01:24 86 15 98 07/27/24 01:15 114/68 07/27/24 01:15 77 14 95 07/27/24 01:00 116/73 07/27/24 01:00 116/73 07/27/24 01:00 36.8 C 07/27/24 00:57 76 16 97 07/27/24 00:45 115/73 07/27/24 00:45 115/73 07/27/24 00:36 77 19 97 2 07/27/24 00:30 110/73 07/27/24 00:21 84 20 96 07/27/24 00:15 118/72 07/27/24 00:00 111/70 07/27/24 00:00 83 19 92 2 07/27/24 00:00 36.7 C 07/27/24 00:00 101 H 07/26/24 23:54 90 16 07/26/24 23:33 91 H 22 91 2 07/26/24 23:30 122/76 07/26/24 23:30 122/76 07/26/24 23:30 122/76 07/26/24 23:30 122/76 07/26/24 23:18 96 H 31 H 92 07/26/24 23:15 132/85 07/26/24 23:15 132/85 07/26/24 23:15 132/85 07/26/24 23:15 101 H 21 90 07/26/24 23:06 107 H 21 92 07/26/24 23:00 118/73 07/26/24 23:00 118/73 07/26/24 23:00 36.9 C 07/26/24 22:48 106 H 21 93 07/26/24 22:45 132/78 07/26/24 22:45 132/78 07/26/24 22:45 132/78 07/26/24 22:45 132/78 07/26/24 22:30 130/81 07/26/24 22:27 94 H 10 L 94 07/26/24 22:18 101 H 20 92 07/26/24 22:15 124/73 07/26/24 22:15 124/73 07/26/24 22:15 124/73 07/26/24 22:06 102 H 14 94 07/26/24 22:00 141/93 H 07/26/24 22:00 36.7 C 07/26/24 21:57 99 H 15 95 07/26/24 21:45 146/94 H 07/26/24 21:39 101 H 14 96 07/26/24 21:36 102 H 14 94 07/26/24 21:30 148/85 H 07/26/24 21:30 148/85 H 07/26/24 21:30 148/85 H 07/26/24 21:27 106 H 17 91 07/26/24 21:09 104 H 19 93 07/26/24 21:00 161/100 H 07/26/24 21:00 161/100 H 07/26/24 20:54 98 H 21 93 07/26/24 20:46 133/82 07/26/24 20:45 100 H 15 96 07/26/24 20:30 177/111 H 07/26/24 20:30 177/111 H 07/26/24 20:30 177/111 H 07/26/24 20:30 177/111 H 07/26/24 20:30 102 H 17 94 07/26/24 20:23 192/120 H 07/26/24 20:23 192/120 H 07/26/24 20:23 192/120 H 07/26/24 20:21 96 H 20 92 07/26/24 20:14 178/121 H 07/26/24 20:14 178/121 H 07/26/24 19:57 92 H 14 07/26/24 19:31 186/135 H 07/26/24 19:30 83 14 94 07/26/24 19:27 86 14 96 Resident Activity Tracking Resident Involvement: Resident Care Provided Care Provided: Adult Hospital Medicine (1) STEMI (ST elevation myocardial infarction) Involved coronary artery: LAD coronary artery Qualified Code(s): I21.02 - ST elevation (STEMI) myocardial infarction involving left anterior descending coronary artery
[2024-07-27 07:19] LABS: Estimated Average Glucose 120 mg/dl; Hemoglobin A1C 5.8 % (4.5-5.6)
--- NOTE | 2024-07-27 09:32 | Critical Care Progress Note ---
Date of Service July 27, 2024 Assessment & Plan (1) STEMI (ST elevation myocardial infarction): (2) Hypertension: (3) Hyperlipidemia: (4) Transaminitis: Plan Patient hemodynamically stable status post STEMI and cardiac cath with 2 drug- eluting stents to the LAD. Currently on goal-directed therapy with dual antiplatelets, beta-kameron, MAGDALENE inhibitor and high-dose statin therapy. Monitor in the ICU for the next 24 hours. Follow-up telemetry. Troponin with significant elevation. Echo with evidence of LV dysfunction likely from mid LAD lesion. Patient with severe abdominal pain yesterday status post CT of the chest and abdomen pelvis. No evidence of aortic dissection or significant pathology. Mild enteritis and mild nonspecific pneumonitis noted. Patient without URI symptoms or gastroenteritis symptoms at present. Will clinically monitor. Bio fire PCR was negative. Patient with mild transaminitis which appears to be slowly improving. Hepatitis panel ordered. Tylenol negative. Transaminitis likely secondary to reduced EF and hepatic congestion Patient stable to be downgraded out of the ICU at this point. Thank you for the consult. Admission and Anticipated Discharge Date Admission Date: July 26, 2024 Subjective Abdominal pain much better controlled today. No hemodynamic issues this morning. Review of Systems Review of Systems: All systems reviewed & are unremarkable except as noted in HPI & below Physical Exam Physical Exam: Constitutional: Patient appears to be of their stated age. Patient is in no apparent distress. Patient is well-developed. Eyes: Pupils are equal round and reactive to light. Conjunctivae are normal. Anicteric sclera. Ears nose, mouth and throat: No perioral cyanosis. Neck: Trachea is midline. Visual inspection is normal. Respiratory: Clear to auscultation bilaterally. No use of accessory muscles. No significant clubbing noted. Cardiovascular: Regular rate and rhythm. No murmurs. No edema. Gastrointestinal: Normal bowel sounds, soft, nontender and nondistended. No hepatosplenomegaly noted. Musculoskeletal: No cyanosis. Patient is able to move all extremities. Strength is 5 out of 5 in the upper and lower extremities. Skin: No rashes, warm dry and intact. Neurologic: No obvious focal neurological deficits seen. Psychiatric: Alert and oriented x3 with a euthymic affect. Results & Data Results & Data Vital Signs (Past 12 Hours) Vital Signs Temp Pulse Resp BP Pulse Ox O2 Del Method O2 Flow Rate 07/27/24 09:09 87 26 H 143/92 H 94 Room Air 07/27/24 08:55 74 07/27/24 08:30 73 17 123/81 07/27/24 08:00 77 17 125/80 07/27/24 07:00 71 16 129/85 95 07/27/24 06:09 92 H 23 126/90 95 07/27/24 06:00 36.6 C 07/27/24 05:00 36.8 C 07/27/24 04:30 66 16 97 07/27/24 04:09 73 19 98 07/27/24 04:00 36.7 C 07/27/24 03:33 72 19 98 07/27/24 03:30 117/76 07/27/24 03:30 117/76 07/27/24 03:21 94 H 22 99 07/27/24 03:00 113/68 07/27/24 03:00 37 C 07/27/24 02:54 82 16 98 07/27/24 02:36 77 15 98 07/27/24 02:30 118/74 07/27/24 02:21 73 18 96 07/27/24 02:15 75 19 95 07/27/24 02:00 117/73 07/27/24 02:00 36.9 C 07/27/24 01:54 76 21 94 07/27/24 01:48 80 22 95 07/27/24 01:45 127/82 07/27/24 01:45 127/82 07/27/24 01:24 86 15 98 07/27/24 01:15 114/68 07/27/24 01:15 77 14 95 07/27/24 01:00 116/73 07/27/24 01:00 116/73 07/27/24 01:00 36.8 C 07/27/24 00:57 76 16 97 07/27/24 00:45 115/73 07/27/24 00:45 115/73 07/27/24 00:36 77 19 97 2 07/27/24 00:30 110/73 07/27/24 00:21 84 20 96 07/27/24 00:15 118/72 07/27/24 00:00 111/70 07/27/24 00:00 83 19 92 2 07/27/24 00:00 36.7 C 07/27/24 00:00 101 H 07/26/24 23:54 90 16 07/26/24 23:33 91 H 22 91 2 07/26/24 23:30 122/76 07/26/24 23:30 122/76 07/26/24 23:30 122/76 07/26/24 23:30 122/76 07/26/24 23:18 96 H 31 H 92 07/26/24 23:15 132/85 07/26/24 23:15 132/85 07/26/24 23:15 132/85 07/26/24 23:15 101 H 21 90 07/26/24 23:06 107 H 21 92 07/26/24 23:00 118/73 07/26/24 23:00 118/73 07/26/24 23:00 36.9 C 07/26/24 22:48 106 H 21 93 07/26/24 22:45 132/78 07/26/24 22:45 132/78 07/26/24 22:45 132/78 07/26/24 22:45 132/78 07/26/24 22:30 130/81 07/26/24 22:27 94 H 10 L 94 07/26/24 22:18 101 H 20 92 07/26/24 22:15 124/73 07/26/24 22:15 124/73 07/26/24 22:15 124/73 07/26/24 22:06 102 H 14 94 07/26/24 22:00 141/93 H 07/26/24 22:00 36.7 C 07/26/24 21:57 99 H 15 95 07/26/24 21:45 146/94 H 07/26/24 21:39 101 H 14 96 07/26/24 21:36 102 H 14 94 Coding Level of Care Code 23495 SUB INP/OBS CARE 3/50MIN Diagnoses STEMI (ST elevation myocardial infarction) I21.02 Involved coronary artery: LAD coronary artery Hypertension I10 Hyperlipidemia E78.5 Transaminitis R74.01 (1) STEMI (ST elevation myocardial infarction) Involved coronary artery: LAD coronary artery Qualified Code(s): I21.02 - ST elevation (STEMI) myocardial infarction involving left anterior descending coronary artery
[2024-07-27 12:17] LABS: iSTAT Creatinine 1.3 mg/dl (0.6-1.3); iSTAT Hemoglobin 13.6 g/dl (14.0-18.0); iSTAT Ionized Calcium 1.08 mmol/l (1.12-1.32); iSTAT Potassium 3.9 mmol/L (3.3-5.0)
--- NOTE | 2024-07-27 13:03 | Cardiology Progress Note ---
Date of Service July 27, 2024 Assessment & Plan (1) CAD (coronary artery disease): Plan: --Post 2 JESSI to LAD --Residual OM, RPDA disease 2. Ischemic cardiomyopathyEF 45%, apical wall motion abnormality 3. Hypertension 4. DyslipidemiaLDL 105 5. Mild aortic regurgitation, mild mitral regurgitation 6. Epigastric pain Prior epigastric pain largely resolved. No recurrent chest pain. Troponin downtrending. Electrically stable. No apparent access site complications. No signs of heart failure on exam. Continue DAPT with aspirin, ticagrelor Can discontinue Nitropaste. Increase losartan to 50 mg daily Continue current metoprolol. Transition to Toprol-XL on discharge Continue current statin. Long-term target LDL <55 Continue current PPI Medical management of residual nonculprit coronary artery disease From a cardiac standpoint okay with transfer to telemetry today. Will repeat limited echocardiogram tomorrow a.m. to reassess LV function/rule out apical thrombus. Appreciate ICU and hospital medicine care. Admission and Anticipated Discharge Date Admission Date: July 26, 2024 Subjective Feeling well this morning. No chest pain this morning. Prior abdominal pain resolved. Overnight had severe epigastric discomfort. Elevated lactate to 3.5 which is now trended down. CT of abdomen/pelvis unremarkable. NG tube attempted. Symptoms seem to improve with pain control, GI cocktail, and BP control. Telemetry reviewedoccasional PVCs. Review of Systems Review of Systems: All systems reviewed & are unremarkable except as noted in HPI & below Physical Exam Physical Exam: General: Comfortable HEENT: Sclerae anicteric Lungs: Clear to auscultation bilaterally, no crackles or wheezes Cardiac: Regular rate and rhythm, no murmurs. Vascular: Right radial artery access site with no ecchymosis, hematoma. Distal pulse and sensation intact. Abdomen: Soft, minimal right upper quadrant tenderness, positive bowel sounds Extremities: Well perfused, no peripheral edema Neuro: Nonfocal Psych: Alert orient x3, normal affect and mood Results & Data Vital Signs (Past 12 Hours) Vital Signs Temp Pulse Resp BP Pulse Ox O2 Del Method 07/27/24 11:18 67 07/27/24 10:30 71 18 119/78 07/27/24 10:00 68 18 117/77 07/27/24 09:18 70 17 117/75 07/27/24 09:09 87 26 H 143/92 H 94 Room Air 07/27/24 08:55 74 07/27/24 08:30 73 17 123/81 07/27/24 08:00 77 17 125/80 07/27/24 07:00 71 16 129/85 95 07/27/24 06:09 92 H 23 126/90 95 07/27/24 06:00 97.9 F 07/27/24 05:00 98.2 F 07/27/24 04:30 66 16 97 07/27/24 04:09 73 19 98 07/27/24 04:00 98.1 F 07/27/24 03:33 72 19 98 07/27/24 03:30 117/76 07/27/24 03:30 117/76 07/27/24 03:21 94 H 22 99 07/27/24 03:00 113/68 07/27/24 03:00 98.6 F 07/27/24 02:54 82 16 98 07/27/24 02:36 77 15 98 07/27/24 02:30 118/74 07/27/24 02:21 73 18 96 07/27/24 02:15 75 19 95 07/27/24 02:00 117/73 07/27/24 02:00 98.4 F 07/27/24 01:54 76 21 94 07/27/24 01:48 80 22 95 07/27/24 01:45 127/82 07/27/24 01:45 127/82 07/27/24 01:24 86 15 98 07/27/24 01:15 114/68 07/27/24 01:15 77 14 95 07/27/24 01:00 116/73 07/27/24 01:00 116/73 07/27/24 01:00 98.2 F 07/27/24 00:57 76 16 97 07/27/24 00:45 115/73 07/27/24 00:45 115/73 PG Care Time/CCT Total # of Minutes Spent Total Time Spent with Patient: Total time spent is greater than 50% in coordination of care (as documented) at patient's floor/unit and/or counseling patient: Coding Level of Care Code 89054 SUB INP/OBS CARE 3/50MIN Diagnoses CAD (coronary artery disease) I25.10
--- NOTE | 2024-07-27 18:02 | Billing Data ---
Date of Service July 27, 2024 Coding Level of Care Code 86630 SUB INP/OBS CARE
[2024-07-27] MEDS: SENNA 8.6 MG TAB PO SCH (20:19)
[2024-07-27] MEDS: POLYETHYLENE (MIRALAX) 17 GM PACK PO SCH (20:19)
[2024-07-27] MEDS: PANTOprazole 40 MG TAB PO SCH (21:09)
--- NOTE | 2024-07-27 23:26 | Electrocardiogram Report ---
Test Reason : Blood Pressure : */* mmHG Vent. Rate : 100 BPM Atrial Rate : 100 BPM P-R Int : 140 ms QRS Dur : 100 ms QT Int : 352 ms P-R-T Axes : 71 30 14 degrees QTcB Int : 454 ms Poor data quality, interpretation may be adversely affected Normal sinus rhythm Anterior infarct , possibly acute ACUTE TN / STEMI Abnormal ECG No previous ECGs available Confirmed by Kan Tony ([id number]) on 07/27/2024 11:26:03 PM Referred By: REFERRED SELF Confirmed By: Kan Tony
--- NOTE | 2024-07-27 23:28 | Electrocardiogram Report ---
Test Reason : Blood Pressure : */* mmHG Vent. Rate : 92 BPM Atrial Rate : 92 BPM P-R Int : 130 ms QRS Dur : 100 ms QT Int : 374 ms P-R-T Axes : 52 34 75 degrees QTcB Int : 462 ms Normal sinus rhythm Anterior infarct Abnormal ECG When compared with ECG of 26-Jul-2024 09:04, ST no longer depressed in Inferior leads ST no longer elevated in Lateral leads T wave inversion no longer evident in Inferior leads Nonspecific T wave abnormality now evident in Lateral leads ST less elevated in Anterior leads Confirmed by Kan Tony ([id number]) on 07/27/2024 11:27:55 PM Referred By: REFERRED SELF Confirmed By: Kan Tony
--- NOTE | 2024-07-27 23:28 | Electrocardiogram Report ---
Test Reason : Blood Pressure : */* mmHG Vent. Rate : 100 BPM Atrial Rate : 100 BPM P-R Int : 128 ms QRS Dur : 94 ms QT Int : 348 ms P-R-T Axes : 43 56 69 degrees QTcB Int : 448 ms Normal sinus rhythm Anterior infarct Abnormal ECG When compared with ECG of 26-Jul-2024 17:17, No significant change was found Confirmed by Kan Tony ([id number]) on 07/27/2024 11:28:25 PM Referred By: REFERRED SELF Confirmed By: Kan Tony
--- NOTE | 2024-07-27 23:29 | Electrocardiogram Report ---
Test Reason : Blood Pressure : */* mmHG Vent. Rate : 97 BPM Atrial Rate : 97 BPM P-R Int : 124 ms QRS Dur : 94 ms QT Int : 388 ms P-R-T Axes : 38 71 83 degrees QTcB Int : 492 ms Normal sinus rhythm Anterior infarct T wave abnormality, consider lateral ischemia Prolonged QT Abnormal ECG When compared with ECG of 26-Jul-2024 20:35, T wave inversion more evident in Anterior leads Confirmed by Kan Tony ([id number]) on 07/27/2024 11:28:50 PM Referred By: REFERRED SELF Confirmed By: Kan Tony
[2024-07-28 04:31] LABS: Basophils # (auto) 0.05 K/uL (0.00-0.20); Basophils % (auto) 0.3 %; Eosinophils # (auto) 0.06 K/uL (0.00-0.50); Eosinophils % (auto) 0.4 %; Hematocrit (blood only) 40.7 % (42.0-52.0); Hemoglobin 14.3 g/dl (14.0-18.0); Immature Granulocytes # (auto) 0.05 K/uL (0.01-0.20); Immature Granulocytes % (auto) 0.3 %; Lymphocytes # (auto) 2.49 K/uL (1.20-3.40); Lymphocytes % (auto) 17.1 %; Mean Corpuscular Hemoglobin 28.6 pg (25.0-34.0); Mean Corpuscular Hgb Conc 35.1 g/dL (32.0-36.0); Mean Corpuscular Volume 81.4 fL (80.0-100.0); Mean Platelet Volume 11.8 fL (9.4-12.4); Monocytes % (auto) 12.3 %; Neutrophils # (auto) 10.13 K/uL (1.40-6.50); Neutrophils % (auto) 69.6 %; Platelet Count 195 K/uL (130-400); RDW Coefficient of Variation 12.4 % (11.5-14.5); RDW Standard Deviation 36.2 fL (36.4-46.3); White Blood Count 14.58 K/ul (4.8-10.8)
[2024-07-28 04:54] LABS: Albumin Level 3.9 gm/dl (3.4-5.0); BUN Creatinine Ratio 13.4 (10-20); Bilirubin Direct 0.2 mg/dl (0-0.2); Bilirubin,Total 1.5 mg/dl (0.2-1.0); Calcium 8.8 mg/dl (8.6-10.3); Creatinine Clr Calc Pharmacy 50.2 ml/min; Potassium 3.9 mmol/L (3.5-5.1); Total Protein 6.9 gm/dl (6.0-8.3)
--- NOTE | 2024-07-28 06:35 | Hospitalist Progress Note ---
Date of Service July 28, 2024 Assessment & Plan (1) STEMI (ST elevation myocardial infarction): (2) Hypertension: (3) Hyperlipidemia: Plan STEMI Pt underwent emergent cardiac cath with Dr. Rhodes on 07/26 where he was found to have 100% acute occlusion of mid LAD. Successful PCI of proximal to mid LAD with JESSI x 2. Echocardiogram post PCI showed Mild LVH, 40-45% EF, Apical akinesis, severe hypokinesis at mid anteroseptum/septum, Mild hypokinesis at mid anterior/inferior. Troponin trended down from 465796.6 to 28857.9 . Pt downgraded to PCU on 07/27. Cardiology Following. -Repeat echocardiogram - A1c= 5.8% - Continued metoprolol tartrate 25mg PO BID - Continued Aspirin 81 mg PO qd - Continued ticagrelor 90mg PO BID - Continue Pantoprazole 40mg PO BID - Continued Acetaminophen 650mg PO q4h PRN for pain HTN - Losartan 50mg PO HLD Lipids: TCho- 161, LDL- 105, HDL-39, triglycerides= 85 - Rosuvastatin 20mg PO Disposition: Downgraded to PCU Full code Heart healthy, vegetarian diet VTE PPx: Admission and Anticipated Discharge Date Admission Date: July 26, 2024 Subjective Pt is a 58 yo male with PMH for HTN and HLD who underwent cardiac catheterization and stent placement in LAD after STEMI. This morning, pt reports abdomen is feeling better since BM this morning. He has not complaints. Denies CP, SOB, headache, SOB, lightheadedness, extremity numbness/tingling, nausea, vomiting, diarrhea, constipation Review of Systems Review of Systems: As per HPI Physical Exam Physical Exam: Constitutional: Patient appears to be of their stated age. Patient is in no apparent distress. Patient is well-developed. Eyes: Conjunctivae are normal. Anicteric sclera. Neck: Trachea is midline. Visual inspection is normal. Respiratory: Clear to auscultation bilaterally. No use of accessory muscles. No significant clubbing noted. Cardiovascular: Regular rate and rhythm. No murmurs. No edema. Gastrointestinal: Normal bowel sounds, soft, nontender and nondistended. Musculoskeletal: No cyanosis. Patient is able to move all extremities. Strength is 5 out of 5 in the upper and lower extremities. Skin: No rashes, warm dry and intact. Neurologic: No obvious focal neurological deficits seen. Psychiatric: Alert and oriented x3 with a euthymic affect. Results & Data Results & Data Vital Signs (Past 12 Hours) Vital Signs Temp Pulse Pulse Resp BP Pulse Ox O2 Del Method 07/28/24 04:09 37.8 C H 95 H 16 117/73 96 Room Air 07/28/24 01:15 36.9 C 85 15 124/78 94 Room Air 07/28/24 00:00 77 07/27/24 21:09 146/90 H 07/27/24 20:11 36.9 C 94 H 12 145/87 H 98 Room Air (1) STEMI (ST elevation myocardial infarction) Involved coronary artery: LAD coronary artery Qualified Code(s): I21.02 - ST elevation (STEMI) myocardial infarction involving left anterior descending coronary artery
[2024-07-28 07:15] VITALS: RESP 20
[2024-07-28 11:02] VITALS: TEMP 99; O2SAT 93
[2024-07-28 14:50] VITALS: BP 125/76
--- NOTE | 2024-07-28 15:28 | Discharge Summary ---
Date of Service July 28, 2024 Admission HPI Per Admitting Provider Tien is a 58-year-old male with unknown PMH. He presented via EMS on the morning of 07/26 for crushing chest pain with radiation to the back. The chest pain started at 0730 this morning. En route, patient received morphine 12 mg IV, Zofran 4 mg IV, nitro spray, and 324 mg of aspirin. Chest pain remained 10 out of 10 despite morphine administration en route. EKG on arrival showed anterior STEMI; heart alert was called, and patient was emergently taken to the [facility] with Dr. Rhodes. Patient is seen post-cardiac cath. He reports that his pain is 2/10 at present; pain is located at the center/left side of his chest; he reports it is on both sides of his heart. He describes it as an achy pain like a "muscle ache". At this time, his only complaint is that he is tired. He reports that the pain this morning was much worse. He woke up feeling fine, but then developed crushing pain in his chest shortly after brushing his tree then washing his face around 7 AM. The pain came on acutely. Radiation to the upper back. No radiation to the shoulders/jaw/arms. No prior history of WA or similar past episodes. The chest pain was not positional or pleuritic. No PMH of DM, PVD, or DVT/PE. He does have a history of hypertension and HLD, for which she takes losartan and a cholesterol medication daily (he believes this is atorvastatin, but is unsure). He also does have a family history of cardiac disease. Both his mother and his father had MIs in their 60s. No family members with WA or sudden cardiac that less than 55 years old. Patient denies smoking, tobacco use, alcohol use, or recreational drug use. No supplemental oxygen at baseline. Additionally, he reports that he does have a history of carpal tunnel in his right wrist, but is not having any numbness or tingling in his wrist at this time. Patient is mildly hypertensive at 152/101; SpO2 92% on 2L NC. Postcatheterization ROS: Patient endorses mild chest pain (2/10), generalized fatigue, and some nausea. Patient denies fever, chills, sweats, headache, crushing chest pain (as before), chest palpitations, SOB, cough, abdominal pain, vomiting, or numbness or tingling in the arms or legs. Principal Diagnosis STEMI/ S/p stents Discharge Exam Constitutional: Patient appears to be of their stated age. Patient is in no apparent distress. Patient is well-developed. Eyes: Conjunctivae are normal. Anicteric sclera. Neck: Trachea is midline. Visual inspection is normal. Respiratory: Clear to auscultation bilaterally. No use of accessory muscles. No significant clubbing noted. Cardiovascular: Regular rate and rhythm. No murmurs. No edema. Gastrointestinal: Normal bowel sounds, soft, nontender and nondistended. Musculoskeletal: No cyanosis. Patient is able to move all extremities. Strength is 5 out of 5 in the upper and lower extremities. Skin: No rashes, warm dry and intact. Neurologic: No obvious focal neurological deficits seen. Psychiatric: Alert and oriented x3 with a euthymic affect. Discharge Data Allergies Allergy/AdvReac Type Severity Reaction Status Date / Time No Known Allergies Allergy Unverified 07/26/24 10:17 Consultations 07/26/24 08:55 Consult Epic Ambulatory Analyst Routine 07/26/24 08:56 Consult Epic Ambulatory Analyst Routine 07/26/24 12:49 Consult Cardiology Routine Procedures Performed Operation Date: 07/26/24 07:55 Actual Procedures p Cineradiography w/Routine Exam - Ken Rhodes MD s Cath, Left with Cors and Vent - Ken Rhodes MD s Drug Eluting Stent SGl Vessel - Ken Rhodes MD Ordered Studies 07/26/24 08:04 CL Cath Imgs for PACS use only Stat 07/26/24 19:50 CTA abdomen pelvis w con [CT angio abdomen pelvis w con] Stat CTA chest wo/w con [CT angio chest wo/w con] Stat Hospital Course (1) STEMI (ST elevation myocardial infarction): (2) Hypertension: (3) Hyperlipidemia: Plan STEMI Pt underwent emergent cardiac cath with Dr. Rhodes on 07/26 where he was found to have 100% acute occlusion of mid LAD. Successful PCI of proximal to mid LAD with JESSI x 2. Echocardiogram post PCI showed Mild LVH, 40-45% EF, Apical akinesis, severe hypokinesis at mid anteroseptum/septum, Mild hypokinesis at mid anterior/inferior. Troponin trended down from 555752.6 to 30250.9 . Pt downgraded to PCU on 07/27. Cardiology Following has cleared pt for hospital discharge - A1c= 5.8% - Continue metoprolol tartrate 25mg PO BID - Continue Aspirin 81 mg PO qd - Continue ticagrelor 90mg PO BID - Continue Pantoprazole 40mg PO BID - Continue Acetaminophen 650mg PO q4h PRN for pain HTN - Losartan 50mg PO HLD Lipids: TCho- 161, LDL- 105, HDL-39, triglycerides= 85 - Rosuvastatin 20mg PO Total Time Total Time Spent Total Time Spent (In Minutes): <30 Discharge Plan Discharge Items Patient Disposition: Home - Self-Care Reason For Visit: STEMI S/P STENTS Discharge Diagnosis: STEMI Status post stents Activity: Per Instructions section Non-emergency contact: Primary Care Provider Call non-emergency contact if: your symptoms worsen Follow-up/Referrals: PCP,NO [Primary Care Provider] - Diet: Heart Healthy Addtl Attending Provider Instructions: You were admitted for a ST-elevation myocardial infarction (STEMI) and treated with coronary stents. We would like you to continue the medications we have started for you in the hospital including: aspirin 81 mg, Brilinta 90mg, metoprolol 50mg, losartan 50mg, pantoprazole 40mg, and rosuvastatin 20mg. These prescriptions have been called into your pharmacy. We would like you to establish care with a primary care physician. Dr. Libia Lange from [facility] would be happy to take care of you. Please make an appointment with the office in one week at . Also follow up with Dr. Rhodes, [facility]. Make an appointment ACTIVITY RECOMMENDATIONS: Excess manipulation of the wrist should be avoided for the next 24-48 hours. * No lifting over 2 pounds (approximately a 1/2 gallon of milk) with the utilized arm for 24 hours. * No strenuous activity such as bowling or tennis for 3 days. * Keep the site of the procedure covered with a bandage for 24 hours. *You may shower the day after the procedure. Do not take a tub bath or submerge the puncture site in water for the next 3 days. *Do not operate any motorized equipment for 3 days. SPECIAL CARE INSTRUCTIONS: The site may be slightly bruised and sore following your procedure. Should any of the following occur, contact the Dr. who performed your procedure. 1. Redness/inflammation, swelling, chills, or fever, or colored drainage at procedure site within 3-7 days after your procedure. 2. Coldness, discoloration, ongoing numbness, severe pain, or swelling. Expect mild tingling of hand and tenderness at the puncture site for up to three days. If this persists beyond three days, or other symptoms develop, notify the Dr. who performed your procedure. BLEEDING: If the procedure site on your wrist begins to bleed, do not panic 1. Place 1 or 2 fingers firmly just slightly above the insertion site to stop the bleeding. You may be able to feel your pulse as you hold pressure. 2. Lift your finger after 5 minutes to see if the bleeding has stopped. 3. Once the bleeding has stopped, gently wipe the wrist area clean with a bandage. * If the bleeding from your wrist does not stop after 10 minutes, or if there is a large amount of bleeding or spurting, call 911 (do not drive yourself to the hospital). SKIN IRRITATION: * You may experience some redness and/or swelling in the area where radiation was administered. If any skin irritation occurs, please contact your family physician. FOLLOW UP VISIT: Keep any scheduled doctor appointments. Pending Studies at Discharge: No Stand-Alone Forms: [facility], Smoking Cessation Medications and DC Order Prescriptions: New Brilinta 90 mg Tablet 90 mg PO BID 30 Days Qty: 60 0RF losartan 50 mg tablet 25 mg PO QAM 30 Days Qty: 15 0RF aspirin 81 mg Tablet,Delayed Release (Dr/Ec) 81 mg PO QAM 30 Days Qty: 30 0RF pantoprazole 40 mg Tablet,Delayed Release (Dr/Ec) 40 mg PO BID 30 Days Qty: 60 0RF rosuvastatin 20 mg Tablet 20 mg PO QAM Qty: 30 0RF metoprolol succinate 50 mg tablet extended release 24 hr 50 mg PO DAILY Qty: 30 0RF Discharge Orders: Discharge Order (Routine); Ordered 07/28/24 Ordered By: Libia Isbell/Other Patient Handouts: Coronary Stents, Cardiac Catheterization Dc, Heart Attack Dc Admission Data Admit Date/Time: 07/26/24 08:55 Attending Provider: Ivan Woods Admit Provider: Ivan Woods Primary Care Provider: PCP,NO Other Providers: Odell Tubbs; Ivan Woods; Ken Rhodes. Other Interventions: Discharge Summary Assessment (RN) Last Done: 07/28/24 16:09 Supervising Physician Co-Signing Physician Notes I personally examined the patient and verified all delgado points of history and exam, discussed case, and agree with decision making with Dr Lange feeling much better overall vitals noted nad heent nc at mmm breathing unlabored no accessory muscles good effort skin without rashes pallor or icterus abd mild distention mild LLQ tenderness STEMI - s/p stenting -med management, appreciate cardiology input -lifestyle change (he actually just recently started on positive changes) -low grade temp mild WBC - seems most c/w inflammatory response from large WA, no s/s infection - feels good/looks well - safe for home, discussed if any worsening/persistence would want re-eval but no intervention appears warranted at this time constipation - miralax, senna - improved otherwise as above, safe/stable for home Resident Activity Tracking Resident Involvement: Resident Care Provided Care Provided: Adult Hospital Medicine
[2024-07-28 16:02] LABS: Hepatitis A Antibody IgM NON-REACTIVE (NON-REACTIVE); Hepatitis B Core Antibody IgM NON-REACTIVE (NON-REACTIVE)
[2024-07-28 16:11] VITALS: PULSE 72
--- NOTE | 2024-07-28 17:33 | Billing Data ---
Date of Service July 28, 2024 Coding Level of Care Code 59238 IN/OBS DISCH 30 MIN/LESS
--- NOTE | 2024-07-28 17:36 | Cardiology Progress Note ---
Date of Service July 28, 2024 Assessment & Plan (1) CAD (coronary artery disease): Plan: --Post 2 JESSI to LAD --Residual OM, RPDA disease 2. Ischemic cardiomyopathyEF 45%, apical wall motion abnormality 3. Hypertension 4. DyslipidemiaLDL 105 5. Mild aortic regurgitation, mild mitral regurgitation 6. Epigastric pain Chest pain-free Electrically stable. No apparent access site complications. No signs of heart failure on exam. From a cardiac standpoint okay with discharge today. Continue DAPT with aspirin, ticagrelor Continue current Toprol-XL, losartan Continue current statin. Long-term target LDL <55 Continue current PPI Medical management of residual nonculprit coronary artery disease Will arrange follow-up with me in 1 to 2 weeks. Admission and Anticipated Discharge Date Admission Date: July 26, 2024 Subjective Feeling great today. No chest pain. No abdominal pain, had a bowel movement today. Telemetry reviewedno events Repeat limited echo today showed improved LV function, EF 50%, no evidence of LV thrombus. Review of Systems 2 Review of Systems: All systems reviewed & are unremarkable except as noted in HPI & below Physical Exam Physical Exam: General: Comfortable HEENT: Sclerae anicteric Lungs: Clear to auscultation bilaterally, no crackles or wheezes Cardiac: Regular rate and rhythm, no murmurs. Vascular: Right radial artery access site with no ecchymosis, hematoma. Distal pulse and sensation intact. Abdomen: Soft, nontender Extremities: Well perfused, no peripheral edema Neuro: Nonfocal Psych: Alert orient x3, normal affect and mood Results & Data Vital Signs (Past 12 Hours) Vital Signs Temp Pulse Pulse Resp BP Pulse Ox O2 Del Method 07/28/24 16:09 99.0 F 72 20 125/76 93 07/28/24 16:00 88 07/28/24 14:50 125/76 07/28/24 11:01 99.0 F 72 20 93/75 L 93 Room Air 07/28/24 08:00 Room Air 07/28/24 08:00 88 07/28/24 07:00 99.7 F H 88 20 122/72 97 Room Air PG Care Time/CCT Total # of Minutes Spent Total Time Spent with Patient: Total time spent is greater than 50% in coordination of care (as documented) at patient's floor/unit and/or counseling patient: Coding Level of Care Code 32036 SUB INP/OBS CARE MIN Diagnoses CAD (coronary artery disease) I25.10
--- NOTE | 2024-07-28 17:39 | XCELERA ---
[id number]
== END 2024-07-28 16:25 | disposition home or self-care (01) | DRG 322 ==
LOC: ED 07:52 → 1E 08:02

== ENCOUNTER 2025-01-14 21:25 | Inpatient (IN) ==
[2025-01-14] MEDS: NITROGLYCERIN 2% OINTMENT 30GM TUBE EXT STA (21:47)
[2025-01-14] MEDS: NITROGLYCERIN SL 0.4 MG/TAB TAB SL STA ×2 (21:47→23:09)
[2025-01-14 21:52] LABS: Basophils # (auto) 0.05 K/uL (0.00-0.20); Basophils % (auto) 0.5 %; Eosinophils # (auto) 0.32 K/uL (0.00-0.50); Immature Granulocytes # (auto) 0.03 K/uL (0.01-0.20); Immature Granulocytes % (auto) 0.3 %; Lymphocytes # (auto) 2.57 K/uL (1.20-3.40); Lymphocytes % (auto) 24.2 %; Mean Corpuscular Hemoglobin 28.8 pg (25.0-34.0); Mean Corpuscular Volume 82.3 fL (80.0-100.0); Mean Platelet Volume 11.2 fL (9.4-12.4); Monocytes # (auto) 0.84 K/uL (0.11-0.59); Monocytes % (auto) 7.9 %; Neutrophils % (auto) 64.1 %; Platelet Count 186 K/uL (130-400); RDW Coefficient of Variation 12.3 % (11.5-14.5); RDW Standard Deviation 36.6 fL (36.4-46.3); Red Blood Count 4.86 M/uL (4.70-6.10); White Blood Count 10.61 K/ul (4.8-10.8)
[2025-01-14] MEDS: SODIUM CHLORIDE 0.9% 1,000 ML IV SCH (21:53)
[2025-01-14 21:56] LABS: iSTAT Creatinine 1.2 mg/dl (0.6-1.3); iSTAT Hemoglobin 13.3 g/dl (14.0-18.0); iSTAT Ionized Calcium 1.12 mmol/l (1.12-1.32); iSTAT Potassium 4.4 mmol/L (3.3-5.0)
[2025-01-14 22:10] LABS: Albumin Globulin Ratio 1.5 (0.9-2); Albumin Level 4.5 gm/dl (3.4-5.0); BUN Creatinine Ratio 15.2 (10-20); Bilirubin,Total 0.6 mg/dl (0.2-1.0); Calcium 9.3 mg/dl (8.6-10.3); Creatinine Clr Calc Pharmacy 61.5 ml/min; Potassium 4.4 mmol/L (3.5-5.1); Total Protein 7.5 gm/dl (6.0-8.3)
[2025-01-14 22:20] LABS: Partial Thromboplastin Ratio 0.9; Partial Thromboplastin Time 25 Seconds (21-31); Prothrombin Time 11.1 Seconds (9.0-12.0)
--- NOTE | 2025-01-14 22:27 | Emergency Department Note ---
Impression & Plan Non-ST elevated myocardial infarction (non-STEMI), Chest pain, CAD (coronary artery disease) ED Provider Note NAME: ANASTASIIA PERRY AGE: 59 SEX: Male INFORMANT: Patient and EMS ED PROVIDER(S): Vivek Erazo MD CHIEF COMPLAINT: Chest pain PLAN: Disposition: Admitted Outpatient prescription management: none Referral: None MEDICAL DECISION MAKING: Patient presented to the emergency department with chest pain and abnormal ECG. Prehospital ECG was concerning for ST segment depressions. I did place a consult with interventional cardiology, Dr. Costello and discussed the patient's history and presenting complaints from the prehospital standpoint. In light of his ST depressions, severe hypertension, and lack of ST elevation he did not recommend initiating a heart alert and suggested medical management. I did contact the corporate trainer and had a repeat ECG performed and discussed the patient's care with him. Patient was feeling better. His blood pressure was improved to the 130s and ST segments were normalized. On arrival the patient was feeling much better and ST segments were normal. Patient had nitro paste ordered. He also noted some discomfort in the level of 5 and was given 1 sublingual nitroglycerin and a dose of IV fentanyl. On reassessment he was doing well. His blood pressure was much improved compared to prehospital findings. Patient had unremarkable CBC and chemistry panel. Chest x-ray was unremarkable as well. Cardiac troponin was mildly elevated. This was concerning for non-STEMI developing. Patient was ordered for IV heparin. I did consult with Dr. Neumann of cardiology. Reviewed the patient's history and presentation tonight. He agreed with the IV treatment, admission, and asked for the patient to remain n.p.o. as he may require catheterization in the morning. Consultation was made with the hospitalist service. Patient then developed chest pain again. Repeat ECG did show ST segment depressions although not quite as prominent as prehospital measurements. The patient was given an additional sublingual nitroglycerin. He had some nausea and was treated with a dose of Zofran and fentanyl. Before the fentanyl was even given the patient's blood pressure which was 166 systolic dropped down to 120. He noted resolution of the discomfort. I did discuss his case with Dr. Jeffrey of the hospital service. We did review the cardiology recommendations and patient's history. Patient was evaluated in the ER and admitted for further management. Care/management discussed with: underwriting manager, cardiology, hospitalist Level of care consideration(s): After review of the information above and other included data, I feel the patient requires escalation of care to admission Triage Nursing notes: reviewed and agree them. Vital Signs: reviewed and remarkable for hypertension during chest pain episodes Additional History obtained from: none Chronic Medical/Social Conditions affecting care: CAD Prior/ Outside/ External records reviewed: Cardiac cath report from 07/27 as well as cardiology note from October 2024 reviewed. Patient had 2 drug-eluting stents to the LAD. He also had mild ischemic cardiomyopathy with a EF of 45%. Differential Diagnosis: Cardiac ischemia, aortic dissection, pulmonary embolism, pneumothorax, pneumonia, pericarditis, myocarditis, esophageal rupture, GERD, cholecystitis, pancreatitis, musculoskeletal, as well as other pathologies. Diagnostics, independently interpreted by me: ECG: Prehospital ECG #1 performed and revealed a sinus rhythm at a rate of [address] segment depressions in V4, V5, V6, lead II, and aVF. [address] elevation in aVR. Prehospital ECG #2 after treatment revealed a normal sinus rhythm with a rate of [address] segment changes resolved. No ST elevation. Hospital ECG reveals a normal sinus rhythm with septal Q wave present. No ST elevation. Nonspecific lateral ST changes. Cardiac Monitoring: Cardiac monitoring ordered by me: The patient was placed on continuous cardiac monitoring and observed. It revealed a normal sinus rhythm at 71 beats per minute without ectopy or evidence of dysrhythmia. Medical decision rules: Patient is high risk by HEART score. Imaging studies: Chest x-ray. Findings: A chest x-ray was performed and revealed no pneumothorax, effusion, infiltrate, pulmonary edema, free air under the diaphragm, or wide mediastinum. Impression: No acute disease. HPI: 59 year old Male arrives for evaluation of chest pain. Patient states throughout the week has been having on and off substernal chest pain. Today this started to worsen around 1500 hrs. and did not go away. It became severe. EMS was summoned. ECG was done and the patient was found to have ST depressions inferolaterally. He was severely hypertensive with blood pressures over 200/100. Patient was given 1 spray of nitroglycerin and 324 mg of aspirin. Patient also did receive 2 doses of 50 mcg of fentanyl. Pain decreased significantly down to a 5 from a 10. Patient had a repeat ECG done prehospital and the ST segments improved significantly. Patient had a [facility] with coronary stenting of the LAD in July 2024. Pt denies LOC, headache, fevers, chills, diaphoresis, visual changes, neck pain, breathing difficulties, nausea, vomiting, abdominal pain, back pain, melena, hematochezia, urinary symptoms, numbness, weakness, lymphadenopathy, rash, or other complaints. PAST MEDICAL HISTORY: See Below, CAD PAST SURGICAL HISTORY: See Below, coronary stenting SOCIAL HISTORY: See Below, non-smoker HOME MEDICATIONS: See Below ALLERGIES: See Below VITALS: See Below PHYSICAL EXAMINATION: GENERAL: Awake, alert, well-appearing, in no distress HENT: Normocephalic, atraumatic. Oropharynx unremarkable. EYES: Normal conjunctiva. Sclera non-icteric. NECK: Inspection normal. Non-tender. Supple. No nuchal rigidity. FROM. No masses. RESPIRATORY: Clear to auscultation. No wheezes. No rales. Normal respiratory effort. CARDIAC: Normal rate. Normal rhythm. No murmurs. No rubs. Extremities warm and well perfused. Pulses equal. No JVD. GI: Soft, non-distended. No tenderness to palpation. No rebound or guarding. No masses. RECTAL: Deferred. MUSCULOSKELETAL: Atraumatic. Chest examination reveals mild parasternal tenderness. The back is symmetrical on inspection without obvious abnormality. There is no CVA tenderness to palpation. No joint edema. LOWER EXTREMITIES: Calves are equal size bilaterally and non-tender. No edema. No discoloration. NEURO: Normal sensorium. No sensory or motor deficits noted. SKIN: No rash or jaundice noted. PROCEDURES: none CRITICAL CARE: I have personally spent 60 minutes of critical care time in the direct management of this patient. This includes bedside care, interpretation of diagnostic studies, and testing, discussion with consultants, patient, and family members, and other required patient management activities. These minutes are in excess of all separately billable procedures. OBSERVATION NOTE: none Past Med/Surg History Problem List (Updated 01/14/25 @ 23:06 by Vivek Erazo MD) Non-ST elevated myocardial infarction (non-STEMI) (Acute) Chest pain (Acute) CAD (coronary artery disease) (Acute) Transaminitis Hyperlipidemia Hypertension Medical History (Updated 01/14/25 @ 23:06 by Vivek Erazo MD) STEMI (ST elevation myocardial infarction) Surgical History S/P cardiac catheterization Family History Denies family history of Ovarian cancer Prostate cancer Myocardial infarction Breast cancer Colorectal cancer Social History (Updated 09/29/24 @ 13:12 by Jemima Treadwell LPN) Smoking Status: Unknown if ever smoked Second Hand Exposure: No; Do You Dip or Chew Tobacco: No; Hx Alcohol Use: No Hx Substance Use: No Preferred Language: Luxembourger Communication Ability: Effective Visual Impairment: Limited Hearing Ability: Normal Bottler Required: No Beliefs That Will Affect Care: None marital status: Current Living Situation: Family Current Living Situation Comment: lives with and son current occupational status: employed 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 Feels Safe at Home: Yes Childhood Exposure to Second-Hand Smoke: No caffeine: No during the past year weight has: remained stable Dental Care, Regularly: No Physical Activity Frequency: Daily Seatbelt Use: always Sunscreen Use: Yes Assistive Devices: None Allergies Allergies Allergy/AdvReac Type Severity Reaction Status Date / Time No Known Allergies Allergy Unverified 10/06/24 15:06 Home Meds Previous Rx's Medication Instructions Recorded aspirin 81 mg tablet,delayed 81 mg PO QAM 30 days #90 tabs 08/24/24 release pantoprazole 40 mg tablet,delayed 40 mg PO BID 30 days #180 tabs 08/24/24 release losartan 50 mg tablet 25 mg (1/2 x 50 mg) PO QAM 90 days 09/05/24 #45 tabs metoprolol succinate 50 mg 50 mg PO DAILY #90 tabs 09/05/24 tablet,extended release 24 hr rosuvastatin 20 mg tablet 20 mg PO QAM #90 tabs 09/05/24 ticagrelor 90 mg tablet (Brilinta) 90 mg PO BID 30 days #180 tabs 09/05/24 trazodone 50 mg tablet 50 mg PO DAILY #90 tabs 10/30/24 Results & Data (ED) Vital Signs Vital Signs - 24 hr 01/14/25 21:37 01/14/25 21:43 01/14/25 21:53 Temperature 36.9 C Temperature Source Oral Pulse Rate 67 72 Pulse Rate [Apical] 71 Respiratory Rate 13 13 Respiratory Effort / Characteristics Non-Labored Spontaneous Non-Labored Spontaneous Respiratory Depth Normal Normal Respiratory Pattern Regular Regular Blood Pressure 163/106 H Blood Pressure [Right Arm] 119/74 Blood Pressure Mean 125 Blood Pressure Mean [Right Arm] 89 Pulse Oximetry 95 94 Oxygen Delivery Method Room Air Room Air Sepsis Recent Fever Within 48 Hours No Sepsis New/Unexplained Change in Mental Status No Sepsis Action Taken by Nursing No Action Required 01/14/25 22:00 01/14/25 22:00 01/14/25 22:36 Temperature Temperature Source Pulse Rate Pulse Rate [Apical] 63 Respiratory Rate 12 Respiratory Effort / Characteristics Non-Labored Spontaneous Respiratory Depth Normal Respiratory Pattern Regular Blood Pressure 123/76 123/76 Blood Pressure [Right Arm] 120/70 Blood Pressure Mean 85 85 Blood Pressure Mean [Right Arm] 86 Pulse Oximetry 97 Oxygen Delivery Method Room Air Sepsis Recent Fever Within 48 Hours Sepsis New/Unexplained Change in Mental Status Sepsis Action Taken by Nursing Laboratory Data 01/14/25 21:40 01/14/25 21:40 Lab Results 01/14/25 01/14/25 Range/Units 21:40 21:44 WBC 10.61 (4.8-10.8) K/ul RBC 4.86 (4.70-6.10) M/uL Hgb 14.0 (14.0-18.0) g/dl POC Hgb 13.3 L (14.0-18.0) g/dl Hct 40.0 L (42.0-52.0) % POC Hct 39 L (42-52) % MCV 82.3 (80.0-100.0) fL MCH 28.8 (25.0-34.0) pg MCHC 35.0 (32.0-36.0) g/dL RDW Std Deviation 36.6 (36.4-46.3) fL RDW Coeff of Vernell 12.3 (11.5-14.5) % Plt Count 186 (130-400) K/uL MPV 11.2 (9.4-12.4) fL Immature Gran % (Auto) 0.3 % Neut % (Auto) 64.1 % Lymph % (Auto) 24.2 % Wy[place] % (Auto) 7.9 % Eos % (Auto) 3.0 % Baso % (Auto) 0.5 % Neut # (Auto) 6.80 H (1.40-6.50) K/uL Lymph # (Auto) 2.57 (1.20-3.40) K/uL Wy[place] # (Auto) 0.84 H (0.11-0.59) K/uL Eos # (Auto) 0.32 (0.00-0.50) K/uL Baso # (Auto) 0.05 (0.00-0.20) K/uL Immature Gran # (Auto) 0.03 (0.01-0.20) K/uL PT 11.1 (9.0-12.0) Seconds INR 1.0 (0.9-1.1) APTT 25 (21-31) Seconds PTT Ratio 0.9 POC Sodium 141 (135-144) mmol/L Sodium 138 (136-145) mmol/L POC Potassium 4.4 (3.3-5.0) mmol/L Potassium 4.4 (3.5-5.1) mmol/L POC Chloride 106 (101-112) mmol/L Chloride 106 (98-107) mmol/L Carbon Dioxide 25 (21-32) mmol/L POC Total CO2 21 L (24-31) mmol/L Anion Gap 7 (3-11) POC Anion Gap 18.0 (16-25) mmol/L POC BUN 17 (7-18) mg/dl BUN 17 (6-23) mg/dl Creatinine 1.12 (0.6-1.4) mg/dl POC Creatinine 1.2 (0.6-1.3) mg/dl Est Cr Clr Drug Dosing 61.5 ml/min eGFR 76.62 BUN/Creatinine Ratio 15.2 (10-20) Glucose 123 H (70-99(Fasting)) mg/dl POC Glucose (other) 124 H (70-99) mg/dl Calcium 9.3 (8.6-10.3) mg/dl POC Ioniz Calcium Maria Guadalupe 1.12 (1.12-1.32) mmol/l Total Bilirubin 0.6 (0.2-1.0) mg/dl AST 14 (13-39) U/L ALT 12 (7-52) U/L Alkaline Phosphatase 51 (34-104) U/L Troponin I High Sens 66.8 H* (0-20) pg/ml Total Protein 7.5 (6.0-8.3) gm/dl Albumin 4.5 (3.4-5.0) gm/dl Globulin 3.0 (2.5-4.0) gm/dl Albumin/Globulin Ratio 1.5 (0.9-2) Lipase 21 (11-82) U/L Administered Medications Fentanyl Citrate (Fentanyl Citrate Pf 100 Mcg/2 Ml Vial) 50 mcg IV Q15M PRN PRN Reason: Pain Stop: 01/28/25 21:41 Last Admin: 01/14/25 23:21 Dose: 50 mcg Documented By: Admin: 01/14/25 22:44 Dose: 50 mcg Documented By: HARIS Sodium Chloride (Nss) 1,000 mls @ 80 mls/hr IV .[id number] [facility] Stop: 01/15/25 21:44 Last Admin: 01/14/25 21:53 Dose: 80 mls/hr Documented By: MED Heparin Sodium/Dextrose (Heparin 72562 Unit/500 Ml D5w) 25,000 units in 500 mls @ 14 mls/hr IV .Q24H [facility]; Protocol Stop: 02/13/25 23:14 Last Admin: 01/14/25 23:32 Dose: 700 units/hr, 14 mls/hr Documented By: AN Co-signed By: LISA Discontinued Medications Heparin Sodium (Porcine) (Heparin Sod (Porcine) 1000 Unit/Ml) 1 units IV NOW ONE Stop: 01/14/25 23:02 Last Admin: 01/14/25 23:33 Dose: 4,000 units Documented By: AN Co-signed By: LISA Heparin Sodium/Dextrose (Heparin Iv Adult Wt-Based Low-Dose W/ Initial Bolus Protocol) 1 each IV NOW STA; Protocol Stop: 01/14/25 22:46 Last Admin: 01/14/25 23:33 Dose: 1 each Documented By: AN Nitroglycerin (Nitroglycerin 2% Ointment 30gm Tube) 0.5 inch EXT NOW STA Stop: 01/14/25 21:35 Last Admin: 01/14/25 21:47 Dose: 0.5 inch Documented By: MED Nitroglycerin (Nitroglycerin Sl 0.4 Mg/Tab Tab) 0.4 mg SL NOW STA Stop: 01/14/25 21:43 Last Admin: 01/14/25 21:47 Dose: 0.4 mg Documented By: MED Nitroglycerin (Nitroglycerin Sl 0.4 Mg/Tab Tab) 0.4 mg SL NOW STA Stop: 01/14/25 23:07 Last Admin: 01/14/25 23:09 Dose: 0.4 mg Documented By: GERARDO Ondansetron HCl (Ondansetron Inj 2 Mg/Ml 2 Ml Vial) 4 mg IV NOW STA Stop: 01/14/25 23:14 Last Admin: 01/14/25 23:21 Dose: 4 mg Documented By: AN Discharge Plan Visit Data Chief Complaint: Cardiac Assessment Stated Complaint: CHEST PAIN ED Provider: Vivek Erazo Discharge Problem: Non-ST elevated myocardial infarction (non-STEMI), Chest pain, CAD (coronary artery disease) Forms Stand Alone Forms: [facility] Prescriptions Prescriptions: No Action aspirin 81 mg tablet,delayed release (DR/EC) 81 mg PO QAM 30 Days Qty: 90 3RF pantoprazole 40 mg tablet,delayed release (DR/EC) 40 mg PO BID 30 Days Qty: 180 3RF losartan 50 mg tablet 25 mg PO QAM 90 Days Qty: 45 3RF metoprolol succinate 50 mg tablet extended release 24 hr 50 mg PO DAILY Qty: 90 3RF rosuvastatin 20 mg tablet 20 mg PO QAM Qty: 90 3RF Brilinta 90 mg tablet 90 mg PO BID 30 Days Qty: 180 3RF trazodone 50 mg tablet 50 mg PO DAILY Qty: 90 2RF Referrals Referrals: Keshawn Kowalski DO [Primary Care Provider] -
[2025-01-14 22:38] LABS: Troponin I High Sensitivity 66.8 pg/ml (0-20)
[2025-01-14] MEDS: fentaNYL citrate PF 100 MCG/2 ML VIAL IV PRN (22:44)
[2025-01-14] MEDS: ONDANSETRON INJ 2 MG/ML 2 ML VIAL IV STA (23:21)
[2025-01-14] MEDS: HEPARIN 25000 UNIT/500 ML D5W 25,000 UNITS/500 ML BAG IV SCH (23:32)
[2025-01-14] MEDS: Heparin IV Adult Wt-Based Low-Dose w/ INITIAL Bolus Protocol IV STA (23:33)
[2025-01-14] MEDS: HEPARIN SOD (PORCINE) 1000 UNIT/ML IV ONE (23:33)
--- NOTE | 2025-01-14 23:53 | History & Physical Report ---
Date of Service January 14, 2025 Assessment & Plan (1) Non-ST elevated myocardial infarction (non-STEMI): (2) Hypertension: (3) Hyperlipidemia: (4) CAD (coronary artery disease): Plan 59-year-old male with history of coronary artery disease status post anterior STEMI in July 2024, status post JESSI x 2 to LAD, residual disease as well as hypertension and hyperlipidemia presenting with 4 days of intermittent left- sided chest pain. Pain has been increasing in frequency and severity over the last several days, particularly bad tonight which prompted patient to seek medical attention. Dynamic EKG changes noted specifically with ST depressions present in lateral leads when patient has pain. Troponin has increased from 66.8--> -111 over 2 hours. #NSTEMI/CAD Admit to PCU Continuous cardiac monitoring Trend troponin Check 2D echo Continue heparin drip Nitropaste 1 inch every 6 hours Continue aspirin 81 mg p.o. daily Continue Brilinta 90 mg p.o. twice daily Continue Crestor 20 mg p.o. every morning Zofran as needed for nausea Will hold metoprolol and losartan for now in the setting of Nitropaste, risk of hypotension Cardiology consultation appreciated Keep patient n.p.o. for likely catheterization in the morning #Hypertensionblood pressure presently 120/79 Continue Nitropaste 1 inch every 6 hours for ongoing chest pain, NSTEMI (patient presently chest pain-free) Hold metoprolol and losartan for now Continue to monitor blood pressure #Hyperlipidemia Continue Crestor 20 mg p.o. every morning #GERD Continue Protonix 40 mg p.o. twice daily History of Present Illness Chief Complaint: Chest pain Primary Care Provider: DO Tien Bowden Is a 59-year-old male presenting with chest pain. Patient with history of hypertension, hyperlipidemia, coronary artery disease status post acute [place] in July 2024 with JESSI x 2 to LAD. Patient still with residual coronary disease involving the OM 50% proximal and 90% ostial RPDA vessels. Ischemic cardiomyopathy with EF of 45% with apical wall motion abnormalities. Ejection fraction has improved to 55% on most recent echo in October 2024. Patient reports he is compliant with his medications and continues to take his DAPT with Brillinta and ASA as directed. Patient reports that over the last 4 days he has been having intermittent episodes of left-sided chest pain. He describes the pain as severe pressure, occasionally stabbing in nature. Nonradiating but is at times positionalpatient states that when he lays flat on his back the pain is significantly worse. He also reports that the pain is exertional to the point where if he walks at an increased pace he gets severe pain which is relieved with rest. the pain lasts anywhere from 10 to 30 minutes and is associated with shortness of breath. Today the pain has become more severe and more frequent. He had an episode in the morning as well as the afternoon and has had several episodes of chest pain this evening which prompted him to seek medical care. Serial EKGs from EMS as well as ER appear to have infero-lateral ST depressions present with episodes of pain and hypertension. Patient markedly hypertensive at the time of chest pain prior to arrival. Patient reports the pain is much improved after receiving Nitro. Presently chest pain free. NO additional complaints - patient denies trauma, cough, fever, chills, nausea, vomiting, diarrhea, weight gain, orthopnea, edema ,dizziness or syncope. ER Course: Nitro 0.5 inch paste Nitro 0.4mg x 2 NSS at 80mL/hr Fentanyl 50mcg IV x 2 Zofran 4mg IV Heparin bolus and gtt per protocol Allergies Allergy/AdvReac Type Severity Reaction Status Date / Time No Known Allergies Allergy Unverified 10/06/24 15:06 Home Medications Medication Instructions Recorded Confirmed Type aspirin 81 mg tablet,delayed 81 mg PO QAM 30 days #90 tabs 08/24/24 01/15/25 Rx release pantoprazole 40 mg tablet,delayed 40 mg PO BID 30 days #180 tabs 08/24/24 01/15/25 Rx release losartan 50 mg tablet 25 mg (1/2 x 50 mg) PO QAM 90 days 09/05/24 01/15/25 Rx #45 tabs metoprolol succinate 50 mg 50 mg PO DAILY #90 tabs 09/05/24 01/15/25 Rx tablet,extended release 24 hr rosuvastatin 20 mg tablet 20 mg PO QAM #90 tabs 09/05/24 01/15/25 Rx ticagrelor 90 mg tablet (Brilinta) 90 mg PO BID 30 days #180 tabs 09/05/24 01/15/25 Rx trazodone 50 mg tablet 50 mg PO DAILY #90 tabs 10/30/24 01/15/25 Rx ticagrelor 90 mg tablet (Brilinta) 90 mg PO 2XD 01/15/25 01/15/25 History Past Med/Surg History Problem List Non-ST elevated myocardial infarction (non-STEMI) (Acute) Chest pain (Acute) CAD (coronary artery disease) (Acute) Transaminitis Hyperlipidemia Hypertension Medical History STEMI (ST elevation myocardial infarction) Surgical History S/P cardiac catheterization Family History Denies family history of Ovarian cancer Prostate cancer Myocardial infarction Breast cancer Colorectal cancer Social History Smoking Status: Unknown if ever smoked Second Hand Exposure: No; Do You Dip or Chew Tobacco: No; Hx Alcohol Use: No Hx Substance Use: No Preferred Language: Malay Communication Ability: Effective Visual Impairment: Limited Hearing Ability: Normal 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 Beliefs That Will Affect Care: None marital status: Current Living Situation: Family Current Living Situation Comment: lives with and son current occupational status: employed 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 Feels Safe at Home: Yes Childhood Exposure to Second-Hand Smoke: No caffeine: No during the past year weight has: remained stable Dental Care, Regularly: No Physical Activity Frequency: Daily Seatbelt Use: always Sunscreen Use: Yes Assistive Devices: None Review of Systems Review of Systems: All systems reviewed & are unremarkable except as noted in HPI & below Physical Exam Physical Exam: General: patient resting comfortably, NAD, non-toxic in appearance, AA&O x 4 Skin: warm, dry, intact, no rashes or lesions HEENT: NC/AT, PERRL, EOMI, anicteric sclera, conjunctiva without injection, external ear normal to inspection and nontender, nares patent, moist mucus membranes, dentition intact, no oropharyngeal lesions, neck supple, trachea midline, no LAD, no thyromegaly, no JVD Heart: +S1/S2, regular, no m/r/g Lungs: equal air entry bilaterally, no rales/rhonchi/wheezes Abd: +BS, soft, NT/ND, no masses/organomegaly/ascites Ext: warm, 2+ pulses in UE/LE bilaterally, no clubbing/cyanosis or edema Neuro: nonfocal, patient AA&O x 4, speech intact, no facial droop, moving all extremities on command with equal strength 5/5 Results & Data Results & Data Vital Signs (Past 12 Hours) Vital Signs Temp Pulse Pulse Resp BP BP Pulse Ox 01/14/25 23:30 77 16 139/87 97 01/14/25 23:21 73 22 122/91 94 01/14/25 23:12 101 H 20 166/106 H 99 01/14/25 23:00 82 24 174/113 H 98 01/14/25 22:36 63 12 120/70 97 01/14/25 22:00 123/76 01/14/25 22:00 123/76 01/14/25 21:53 71 13 119/74 94 01/14/25 21:43 72 01/14/25 21:37 36.9 C 67 13 163/106 H 95 O2 Del Method 01/14/25 23:30 Room Air 01/14/25 23:21 Room Air 01/14/25 23:12 Room Air 01/14/25 23:00 Room Air 01/14/25 22:36 Room Air 01/14/25 22:00 01/14/25 22:00 01/14/25 21:53 Room Air 01/14/25 21:43 01/14/25 21:37 Room Air Laboratory Results Laboratory Results WBC 10.61 K/ul (4.8-10.8) 01/14/25 21:40 RBC 4.86 M/uL (4.70-6.10) 01/14/25 21:40 Hgb 14.0 g/dl (14.0-18.0) 01/14/25 21:40 POC Hgb 13.3 g/dl (14.0-18.0) L 01/14/25 21:44 Hct 40.0 % (42.0-52.0) L 01/14/25 21:40 POC Hct 39 % (42-52) L 01/14/25 21:44 MCV 82.3 fL (80.0-100.0) 01/14/25 21:40 MCH 28.8 pg (25.0-34.0) 01/14/25: MCHC 35.0 g/dL (32.0-36.0) 01/14/25: RDW Std Deviation 36.6 fL (36.4-46.3) 01/14/25: RDW Coeff of Vernell 12.3 % (11.5-14.5) 01/14/25: Plt Count 186 K/uL (130-400) 01/14/25 21: MPV 11.2 fL (9.4-12.4) 01/14/25: Immature Gran % (Auto) 0.3 % 01/14/25: Neut % (Auto) 64.1 % 01/14/25: Lymph % (Auto) 24.2 % 01/14/25: Ponce % (Auto) 7.9 % 01/14/25: Eos % (Auto) 3.0 % 01/14/25: Baso % (Auto) 0.5 % 01/14/25: Neut # (Auto) 6.80 K/uL (1.40-6.50) H 01/14/25: Lymph # (Auto) 2.57 K/uL (1.20-3.40) 01/14/25: Ponce # (Auto) 0.84 K/uL (0.11-0.59) H 01/14/25: Eos # (Auto) 0.32 K/uL (0.00-0.50) 01/14/25: Baso # (Auto) 0.05 K/uL (0.00-0.20) 01/14/25: Immature Gran # (Auto) 0.03 K/uL (0.01-0.20) 01/14/25: PT 11.1 Seconds (9.0-12.0) 01/14/25: INR 1.0 (0.9-1.1) 01/14/25: APTT 25 Seconds (21-31) 01/14/25: PTT Ratio 0.9 04/13/25 21:40 POC Sodium 141 mmol/L (135-144) 01/14/25 21:44 Sodium 138 mmol/L (136-145) 01/14/25 21:40 POC Potassium 4.4 mmol/L (3.3-5.0) 01/14/25 21:44 Potassium 4.4 mmol/L (3.5-5.1) 01/14/25 21:40 POC Chloride 106 mmol/L (101-112) 01/14/25 21:44 Chloride 106 mmol/L (98-107) 01/14/25 21:40 Carbon Dioxide 25 mmol/L (21-32) 01/14/25 21:40 POC Total CO2 21 mmol/L (24-31) L 01/14/25 21:44 Anion Gap 7 (3-11) 01/14/25 21:40 POC Anion Gap 18.0 mmol/L (16-25) 01/14/25 21:44 POC BUN 17 mg/dl (7-18) 01/14/25 21:44 BUN 17 mg/dl (6-23) 01/14/25 21:40 Creatinine 1.12 mg/dl (0.6-1.4) 01/14/25 21:40 POC Creatinine 1.2 mg/dl (0.6-1.3) 01/14/25 21:44 Est Cr Clr Drug Dosing 61.5 ml/min 01/14/25 21:40 eGFR 76.62 01/14/25 21:40 BUN/Creatinine Ratio 15.2 (10-20) 01/14/25 21:40 Glucose 123 mg/dl (70-99(Fasting)) H 01/14/25 21:40 POC Glucose (other) 124 mg/dl (70-99) H 01/14/25 21:44 Calcium 9.3 mg/dl (8.6-10.3) 01/14/25 21:40 POC Ioniz Calcium Maria Guadalupe 1.12 mmol/l (1.12-1.32) 01/14/25 21:44 Total Bilirubin 0.6 mg/dl (0.2-1.0) 01/14/25 21:40 AST 14 U/L (13-39) 01/14/25 21:40 ALT 12 U/L (7-52) 01/14/25 21:40 Alkaline Phosphatase 51 U/L (34-104) 01/14/25 21:40 Troponin I High Sens 111.0 pg/ml (0-20) H* D 01/15/25 00:09 Total Protein 7.5 gm/dl (6.0-8.3) 01/14/25 21:40 Albumin 4.5 gm/dl (3.4-5.0) 01/14/25 21:40 Globulin 3.0 gm/dl (2.5-4.0) 01/14/25 21:40 Albumin/Globulin Ratio 1.5 (0.9-2) 01/14/25 21:40 Lipase 21 U/L (11-82) 01/14/25 21:40 Code Status & VTE Plan VTE Prophylaxis Plan VTE Prophylaxis will be ordered: No PG Care Time/CCT Total # of Minutes Spent Total Time Spent with Patient: Total time spent is greater than 50% in coordination of care (as documented) at patient's floor/unit and/or counseling patient: Coding Level of Care Code 51189 INT INP/OBS CARE 3/75MIN Diagnoses Non-ST elevated myocardial infarction (non-STEMI) I21.4 Hypertension I10 Hyperlipidemia E78.5 CAD (coronary artery disease) I25.10
[2025-01-15] MEDS ORDERED: ONDANSETRON INJ 2 MG/ML 2 ML VIAL IV PRN (03:36)
[2025-01-15] MEDS ORDERED: ACETAMINOPHEN 325 MG TAB PO PRN (03:36)
[2025-01-15] MEDS: NITROGLYCERIN 2% OINTMENT 30GM TUBE EXT SCH (04:26)
[2025-01-15 07:01] LABS: Hemoglobin 13.1 g/dl (14.0-18.0); Mean Corpuscular Hemoglobin 28.7 pg (25.0-34.0); Mean Corpuscular Hgb Conc 34.5 g/dL (32.0-36.0); Mean Corpuscular Volume 83.3 fL (80.0-100.0); Mean Platelet Volume 11.6 fL (9.4-12.4); Platelet Count 163 K/uL (130-400); RDW Coefficient of Variation 12.5 % (11.5-14.5); RDW Standard Deviation 37.5 fL (36.4-46.3); Red Blood Count 4.56 M/uL (4.70-6.10); White Blood Count 8.48 K/ul (4.8-10.8)
--- NOTE | 2025-01-15 07:01 | XRay Report ---
EXAM: XR chest 1V portable CLINICAL HISTORY: Chest pain, nonspecific TECHNIQUE: An X-ray image of the chest is obtained in AP projection. COMPARISON: 07/26/2024. FINDINGS: Pulmonary Parenchyma: Bilateral prominent bronchovascular markings. Non-specific findings. Unchanged. No evidence of consolidation, collapse, or focal opacities. No pulmonary nodules are identified. No evidence of pleural effusion or pleural thickening. Heart and Mediastinum: Heart size and shape are normal. No mediastinal widening or masses. Bony Thorax: Bony thorax appears intact without fractures or deformities. Soft Tissues: Soft tissues overlying the chest wall are unremarkable. IMPRESSION: 1. No acute cardiopulmonary abnormalities are identified. 2. No significant interval changes. Electronically signed by Romain Patel 01-15-2025 07:00 AM
[2025-01-15 07:15] LABS: BUN Creatinine Ratio 15.3 (10-20); Calcium 8.8 mg/dl (8.6-10.3); Creatinine Clr Calc Pharmacy 56.7 ml/min; Potassium 4.5 mmol/L (3.5-5.1)
[2025-01-15 07:21] LABS: ANTI-Xa, UFH(UnfractionatedHep 0.51 IU/ml (0.3-0.7)
[2025-01-15 07:32] LABS: Troponin I High Sensitivity 264.8 pg/ml (0-20)
--- NOTE | 2025-01-15 08:40 | Cardiology Consultation ---
Date of Consultation January 15, 2025 Assessment & Plan (1) Non-ST elevated myocardial infarction (non-STEMI): 2. CAD -- Acute [place] post 2 JESSI to LAD 07/2024 --Residual OM, RPDA disease 2. Ischemic cardiomyopathyEF 45%, apical wall motion abnormalityEF 55% 10/2024 3. HypertensionARB, BB 4. DyslipidemiaLDL 67 10/2024 5. Mild aortic regurgitation, mild mitral regurgitation - echo 10/2024 Presentation consistent with elevated risk ACS/NSTEMI. Recommend proceeding with repeat coronary angiography and possible PCI. Discussed procedure with patient and he agrees with proceeding. Please keep NPO until procedure. In interim continue heparin drip, nitro patch. Resume ASA, Ticagrelor, statin. Further recommendations pending angiography. History of Present Illness Attending Physician: Tesha Jeffrey DO History of Present Illness Mr. Samayoa is a very pleasant 59-year-old man with hypertension, dyslipidemia and CAD with acute [place] post PCI to LAD 07/2024 seen today after admitted with NSTEMI. Reports 4-5 days of stuttering LT sided chest pain most notably with exertion. Pain associated with dyspnea, and sometimes severe enough that had to sit down. Pain reminiscent of what he had with [place]. Yesterday pain more severe, lasting and presented to [facility] ED. Intermittent CP in ED relieved with nitro. HsTrop 66 --> 264. Dynamic inferolateral ST changes on ECG. CP free overnight on heparin, nitro patch. Hemodynamically stable. Telemetry unremarkable. Echo showed EF 50% with no new obvious wall motion abnormalities. Prior cardiac history: Presented 07/26/2024 with acute onset 10 out of 10 chest pain beginning approximately 1 hour prior to arrival. ECG in field showed anterior ST elevations, continue to have 10 out of 10 pain en route from [place]. Found to have acutely occluded mid LAD treated with 2 overlapping JESSI from proximal to mid LAD. Nonculprit disease included 25% distal LMCA, 50% OM 2 and 90% ostial RPDA. Post procedure echo showed EF 45% with apical akinesis and mid septal/anterior/inferior hypokinesis, mild AI/MR. HS TropI peaked at 157,000. Post PCI course complicated by severe abdominal pain briefly treated with pain control/GI cocktail/BP control and NG tube in ICU. Eventually improved without additional intervention. LDL at time of [place] 105. Discharged home on hospital day 3 on ASA/ticagrelor. Most recent lipids: Total cholesterol 125, triglycerides 121, HDL 34, LDL 67 Prior to his [place] had drastically modified his diet and has lost weight, reduced his LDL to 105 on atorvastatin. Social history: Non-smoker. 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 . His son is 3rd year medical student, planning on ortho. Allergies Allergy/AdvReac Type Severity Reaction Status Date / Time No Known Allergies Allergy Unverified 10/06/24 15:06 Home Medications Medication Instructions Recorded Confirmed Type aspirin 81 mg tablet,delayed 81 mg PO QAM 30 days #90 tabs 08/24/24 01/15/25 Rx release pantoprazole 40 mg tablet,delayed 40 mg PO BID 30 days #180 tabs 08/24/24 01/15/25 Rx release losartan 50 mg tablet 25 mg (1/2 x 50 mg) PO QAM 90 days 09/05/24 01/15/25 Rx #45 tabs metoprolol succinate 50 mg 50 mg PO DAILY #90 tabs 09/05/24 01/15/25 Rx tablet,extended release 24 hr rosuvastatin 20 mg tablet 20 mg PO QAM #90 tabs 09/05/24 01/15/25 Rx ticagrelor 90 mg tablet (Brilinta) 90 mg PO BID 30 days #180 tabs 09/05/24 01/15/25 Rx trazodone 50 mg tablet 50 mg PO DAILY #90 tabs 10/30/24 01/15/25 Rx ticagrelor 90 mg tablet (Brilinta) 90 mg PO 2XD 01/15/25 01/15/25 History Patient History Medical History STEMI (ST elevation myocardial infarction) Surgical History S/P cardiac catheterization Family History Denies family history of Ovarian cancer Prostate cancer Myocardial infarction Breast cancer Colorectal cancer Social History Smoking Status: Never smoker Second Hand Exposure: No; Do You Dip or Chew Tobacco: No; Hx Alcohol Use: No Hx Substance Use: No Preferred Language: Thai Communication Ability: Effective Visual Impairment: Limited Hearing Ability: Normal 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 Beliefs That Will Affect Care: None marital status: Current Living Situation: Spouse Current Living Situation Comment: Pt states he lives with his in an appartment that doesnt have any step current occupational status: employed 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 Other Information That Helps Us Care for You: No Feels Safe at Home: Yes Safety Concerns: Feels Safe At This Time Childhood Exposure to Second-Hand Smoke: No caffeine: No during the past year weight has: remained stable Dental Care, Regularly: No Physical Activity Frequency: Daily Seatbelt Use: always Sunscreen Use: Yes Assistive Devices: None Review of Systems Review of Systems: All systems reviewed & are unremarkable except as noted in HPI & below Physical Exam Physical Exam: General: Comfortable HEENT: Sclerae anicteric Lungs: Clear to auscultation bilaterally, no crackles or wheezes Cardiac: Regular rate and rhythm, no murmurs. Vascular: 2+ radial pulses. Abdomen: Soft, nontender Extremities: Well perfused, no peripheral edema Neuro: Nonfocal Psych: Alert orient x3, normal affect and mood Results & Data Vital Signs (Past 12 Hours) Vital Signs Temp Pulse Pulse Resp BP BP Pulse Ox 01/15/25 07:05 97.7 F 54 L 18 121/77 96 01/15/25 04:01 65 01/15/25 03:45 98.1 F 64 18 135/73 98 01/15/25 03:38 98.1 F 64 18 135/73 98 01/15/25 02:55 55 L 16 105/71 95 01/15/25 02:00 64 18 134/80 99 01/15/25 01:35 62 01/15/25 00:00 59 L 18 120/79 95 01/14/25 23:30 77 16 139/87 97 01/14/25 23:21 73 22 122/91 94 01/14/25 23:12 101 H 20 166/106 H 99 01/14/25 23:00 82 24 174/113 H 98 01/14/25 22:36 63 12 120/70 97 01/14/25 22:00 123/76 01/14/25 22:00 123/76 01/14/25 21:53 71 13 119/74 94 01/14/25 21:43 72 01/14/25 21:37 98.4 F 67 13 163/106 H 95 O2 Del Method 01/15/25 07:05 Room Air 01/15/25 04:01 01/15/25 03:45 Room Air 01/15/25 03:38 Room Air 01/15/25 02:55 Room Air 01/15/25 02:00 Room Air 01/15/25 01:35 01/15/25 00:00 Room Air 01/14/25 23:30 Room Air 01/14/25 23:21 Room Air 01/14/25 23:12 Room Air 01/14/25 23:00 Room Air 01/14/25 22:36 Room Air 01/14/25 22:00 01/14/25 22:00 01/14/25 21:53 Room Air 01/14/25 21:43 01/14/25 21:37 Room Air PG Care Time/CCT Total # of Minutes Spent Total Time Spent with Patient: Total time spent is greater than 50% in coordination of care (as documented) at patient's floor/unit and/or counseling patient: Coding Level of Care Code 53133 IN/OBS CONSULT LVL 4,60M Diagnoses Non-ST elevated myocardial infarction (non-STEMI) I21.4
--- NOTE | 2025-01-15 08:42 | Pre Anesthesia Assessment ---
Date of Service January 15, 2025 Pre Sedation Assessment Vital Signs Temp Pulse Pulse Resp BP BP Pulse Ox 01/15/25 07:05 97.7 F 54 L 18 121/77 96 01/15/25 04:01 65 01/15/25 03:45 98.1 F 64 18 135/73 98 01/15/25 03:38 98.1 F 64 18 135/73 98 01/15/25 02:55 55 L 16 105/71 95 01/15/25 02:00 64 18 134/80 99 01/15/25 01:35 62 01/15/25 00:00 59 L 18 120/79 95 01/14/25 23:30 77 16 139/87 97 01/14/25 23:21 73 22 122/91 94 01/14/25 23:12 101 H 20 166/106 H 99 01/14/25 23:00 82 24 174/113 H 98 01/14/25 22:36 63 12 120/70 97 01/14/25 22:00 123/76 01/14/25 22:00 123/76 01/14/25 21:53 71 13 119/74 94 01/14/25 21:43 72 01/14/25 21:37 98.4 F 67 13 163/106 H 95 O2 Del Method 01/15/25 07:05 Room Air 01/15/25 04:01 01/15/25 03:45 Room Air 01/15/25 03:38 Room Air 01/15/25 02:55 Room Air 01/15/25 02:00 Room Air 01/15/25 01:35 01/15/25 00:00 Room Air 01/14/25 23:30 Room Air 01/14/25 23:21 Room Air 01/14/25 23:12 Room Air 01/14/25 23:00 Room Air 01/14/25 22:36 Room Air 01/14/25 22:00 01/14/25 22:00 01/14/25 21:53 Room Air 01/14/25 21:43 01/14/25 21:37 Room Air Cardiovascular RRR, no murmur, no edema Respiratory + respiratory effort normal Pre-Sedation Airway Assessment Smoking Status: Never smoker Hx Sleep Apnea: No Hx Difficult Intubation: No Thyromental Distance: > or= 3.5 Finger Breadths Oral Cavity: + Dental Abnormalities Mallampati Class: III ASA: ASA3 Procedure Planning Contraindications for Sedation: none Current Medications Reviewed: Yes Notes The planned sedation has been discussed with the patient. Informed Consent was obtained. I have identified the patient, determined the appropriateness of sedation and have assessed the patient immediately prior to the procedure. All medicine(s) and interventions are by my order.
[2025-01-15] MEDS: TICAGRELOR 90 MG TAB PO SCH (09:21)
[2025-01-15] MEDS: ASPIRIN 81 MG ECTAB PO SCH (09:21)
[2025-01-15] MEDS: ROSUVASTATIN CALCIUM 20 MG TAB PO SCH (09:21)
--- NOTE | 2025-01-15 09:30 | XCELERA ---
[id number] [id number]
--- NOTE | 2025-01-15 11:11 | Electrocardiogram Report ---
Test Reason : Blood Pressure : */* mmHG Vent. Rate : 77 BPM Atrial Rate : 77 BPM P-R Int : 138 ms QRS Dur : 84 ms QT Int : 388 ms P-R-T Axes : 55 34 78 degrees QTcB Int : 439 ms Normal sinus rhythm When compared with ECG of 26-Jul-2024 23:09, Non-specific change in ST segment in Inferior leads Non-specific change in ST segment in Lateral leads T wave inversion no longer evident in Anterolateral leads QT has shortened Confirmed by Ken Garcia ([id number]) on 01/15/2025 11:11:18 AM Referred By: REFERRED SELF Confirmed By: Ken Garcia
[2025-01-15] MEDS: MIDAZOLAM HCL 1 MG/ML 2ML VIAL ONE (12:18)
[2025-01-15] MEDS: NITROGLYCERIN/D5W 100MCG/ML 20ML SYR ONE (12:19)
[2025-01-15] MEDS: niCARdipine 2,000 MCG/20 ML SYR ONE (12:19)
[2025-01-15] MEDS: HEPARIN (PORCINE) 1000 UNIT/ML 10 ML (CATH LAB USE ONLY) ONE (12:53)
[2025-01-15] MEDS: OPTIRAY 350 ONE (12:53)
[2025-01-15] MEDS: fentaNYL citrate PF 100 MCG/2 ML VIAL ONE (12:53)
--- NOTE | 2025-01-15 12:56 | Post Anesthesia Assessment ---
Date of Service January 15, 2025 Post Sedation Assessment Vital Signs Temp Pulse Pulse Resp BP BP Pulse Ox 01/15/25 11:22 74 16 131/74 98 01/15/25 11:13 97.9 F 53 L 18 120/69 96 01/15/25 07:05 97.7 F 54 L 18 121/77 96 01/15/25 04:01 65 01/15/25 03:45 98.1 F 64 18 135/73 98 01/15/25 03:38 98.1 F 64 18 135/73 98 01/15/25 02:55 55 L 16 105/71 95 01/15/25 02:00 64 18 134/80 99 01/15/25 01:35 62 01/15/25 00:00 59 L 18 120/79 95 01/14/25 23:30 77 16 139/87 97 01/14/25 23:21 73 22 122/91 94 01/14/25 23:12 101 H 20 166/106 H 99 01/14/25 23:00 82 24 174/113 H 98 01/14/25 22:36 63 12 120/70 97 01/14/25 22:00 123/76 01/14/25 22:00 123/76 01/14/25 21:53 71 13 119/74 94 01/14/25 21:43 72 01/14/25 21:37 98.4 F 67 13 163/106 H 95 O2 Del Method 01/15/25 11:22 Room Air 01/15/25 11:13 Room Air 01/15/25 07:05 Room Air 01/15/25 04:01 01/15/25 03:45 Room Air 01/15/25 03:38 Room Air 01/15/25 02:55 Room Air 01/15/25 02:00 Room Air 01/15/25 01:35 01/15/25 00:00 Room Air 01/14/25 23:30 Room Air 01/14/25 23:21 Room Air 01/14/25 23:12 Room Air 01/14/25 23:00 Room Air 01/14/25 22:36 Room Air 01/14/25 22:00 01/14/25 22:00 01/14/25 21:53 Room Air 01/14/25 21:43 01/14/25 21:37 Room Air Recovery Score Activity: Moves 4 extremities Respiration: Deep Breath/Cough Circulation: +/-20% PreAnes Value Consciousness: Fully Awake Oxygen Saturation: O2 needed for >90% Discharge Sedation Level of Care: Fast Track Phase II Post Sedation Plan On clinical assessment, the patient appears to have tolerated the sedation without complications. Patient is recovering as anticipated. Patient will continue to be monitored by nursing and may be discharged when sedation discharge criteria are met per below protocol. Upon Completions of procedure up to 15 minutes continue every 5 minute vital signs and the P.A.R. score; then discharge to a Phase I or Fast Track to Phase II per the following guidelines: * Discharge Patient to appropriate Phase II area if PAR is 8 or greater or return to pre- procedure baseline. The post - procedure orders will be as directed. * If PAR score is less than 8 or not return to pre-procedure baseline then patient will follow Phase I monitoring till PAR is reached for Phase II. The Phase I may be done in procedure room or may call to secure a Phase I area. * If naloxone or flumazenil are used for reversal, hold in Phase I for continued monitoring from when last reversal dose was given for a minimum of 60 minutes or longer pending the nurse and/or physician discretion of patient condition before discharge to Phase II. Please call the Sedation Physician to re-evaluate and complete post-note for discharge to Phase II area. Do NOT discharge from procedure sedation or Phase 1 until post- sedation evaluation note is complete by procedure /sedation MD Sedation Discharge Instructions to be given to the patient at discharge to home.
[2025-01-15] MEDS: TICAGRELOR 90 MG TAB PO STA (13:01)
--- NOTE | 2025-01-15 13:05 | Cardiac Catheterization ---
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 Distal vessel withou t significant disease and extends to apex. Small jailed diagonal with ostial stenosis but ROSANNA-3 flow. Circumflex -medium caliber 3040% proximal disease, 98% acute proximal OM 2. Distal AV groove circumflex without significant disease. RCA -dominant, large caliber, 30% lateproximal and mid segment disease. 90+% ostial RPDA. Large RPLB without significant disease. LVEDP 20 -- PCI -- Antithrombotic therapy: Heparin, ticagrelor Procedure: Left main cannulated with EBU 3.5 guide Pre-procedure flow ROSANNA 3 Home Teaching Grades 9 Thru 12 Teacher 50 wire passed across lesion into distal vessel Prowater wire placed into AV groove circumflex Proximal OM 2 lesion predilated with 2.5 compliant balloon Dilated lesion stented with 2.75 x 18 mm Hamilton drug-eluting stent Stent post-dilated with 3.5 noncompliant balloon IC vasodilators administered for spasm Jailed AV groove distal circumflex rewired with bar pilot 50 wire Ostium of AV groove circumflex dilated through stent struts with 2.0 balloon Post procedure ROSANNA 3 flow, stent well expanded with minimal residual stenosis and no apparent cardiac complications. ROSANNA-3 flow in distal AV groove circumflex and jailed branch off OM 2. Arterial Closure: TR band Summary: 1. Multivessel coronary artery disease - Acute 98% proximal OM2 Proximal to mid LAD stents widely patent 90+% ostial RPDA (stable from 07/2024) 2. Borderline elevated intracardiac filling pressure 3. Successful PCI of mid circumflex to mid OM 2 with single drug-eluting stent (2.75 x 18 mm Jeremie; postdilated with 3.5 NC). - PTCA of jailed distal AV groove circumflex with 2.0 balloon Recommendations: To PCU for continued monitoring Continue dual-antiplatelet therapy for at least 1 year Continue statin, and ASCVD risk factor modification Consult cardiac Rehab Hemodynamics Rest Ao:: 133/77/103 Final Ao: 130/71/94 LV: 142/20 Recommendations Recommendations: PCI without planned CABG Specimens Specimens: None Radiation Exposure (mGy) 2181 Contrast (mls) 85 Anesthesia Moderate [id number] Procedural Complication(s) None Disposition PCU I attest to the content of the Intraoperative Record and any orders documented therein. Any exceptions are noted below. [facility] Card Cath Procedure Codes Cardiac Catheterization Procedure 1: Cardiovascular Cath Procedures: 81864 Coronaries and LHC (+/-LV) Moderate Sedation Procedure 1: Sedation/Anesthesia: 22963 Mod Sedation by the same physician;Init15 Min Child Age 5 & Up Procedure 2: Sedation/Anesthesia: 56180 Mod Sedation by the same physician; Ea [id number] Minutes Stenting Procedure 1: Cardiovascular Stent Procedures: 15991 Perc transcatheter placement of intracoronary stent(s), with ang PG Care Time/CCT Total # of Minutes Spent Total Time Spent with Patient: Total time spent is greater than 50% in coordination of care (as documented) at patient's floor/unit and/or counseling patient:
--- NOTE | 2025-01-15 14:20 | Hospitalist Progress Note ---
Date of Service January 15, 2025 Assessment & Plan (1) Non-ST elevated myocardial infarction (non-STEMI): (2) Hypertension: (3) Hyperlipidemia: (4) CAD (coronary artery disease): Plan 59-year-old male with history of coronary artery disease status post anterior STEMI in July 2024, status post JESSI x 2 to LAD, residual disease as well as hypertension and hyperlipidemia presenting with 4 days of intermittent left- sided chest pain. Pain has been increasing in frequency and severity over the last several days, particularly bad tonight which prompted patient to seek medical attention. Dynamic EKG changes noted specifically with ST depressions present in lateral leads when patient has pain. Troponin has increased from 66.8--> -111 over 2 hours. NSTEMI Worsening chest pain in the last week, 9/10 sternal and left-sided chest pain prior to admission, lateral ST depressions, and elevated troponin on ER evaluation Echo: EF 50-55%, severely hypokinetic apical septum. Remaining apical segments, mid anteroseptum mildly hypokinetic. Normal RV size and function. No significant changes compared to 10/06/2024 Troponin trend following admission 66, 111, 264. Was heparinized overnight with resolution of pain S/p cardiac catheterization 01/15/2025. Multivessel CAD, 98% proximal OM 2, prior mid LAD/proximal stents patent, 90% ostial RPDA stent stable from prior. Successful PCI of mid circumflex to OM 2 with JESSI. PTCA of jailed distal AV groove with 2.0 balloon by interventional cardiology Aspirin/Brilinta DAPT x 1 year. ARB continued. Beta-kameron temporarily held for bradycardia. Continue statin. Last lipid panel 10/05/2024: Triglycerides 121, cholesterol 125, LDL 67. A1c pending, last 5.8 07/2024 TR band protocol post cath Heparin discontinued post cath Heart healthy diet CAD History of 2 JESSI to LAD 2023 Management of NSTEMI as above, medications as noted #Hypertension Continue losartan. Kameron currently held. #Hyperlipidemia Continue Crestor 20 mg p.o. every morning #GERD Continue Protonix 40 mg p.o. twice daily Admission and Anticipated Discharge Date Admission Date: January 14, 2025 Subjective Seen at the bedside. Reports his last episode of pain was around 10:00 yesterday evening. No recurrence of pain since then. No shortness of breath or difficulty breathing. No chest pain currently. He reports that he has had intermittent pain in his left chest which did not used to be brought out by exercise however in the last week does endorse worsened left and central chest pain with exertion which has also come on intermittently. Does report some tenderness overlying his left breast on palpation which is very similar but not completely the same as the pain that brought him in. Pain yesterday was 10/10 until it resolved following admission. Subsequently overnight reports no recurrence of pain. No current chest pain at time of morning assessment, he is pending catheterization. No shortness of breath, difficulty breathing, orthopnea at time of bedside assessment Physical Exam Physical Exam: General: A&Ox3. NAD. Cooperative. HEENT: Atraumatic, normocephalic. Vision/hearing grossly intact Pulm: CTAB A&P. -wheezes, -rales, -rhonchi. Symmetrical chest rise. No increased work of breathing. No respiratory distress. Cardiac: RRR, -mrg. Radial pulses intact and symmetrical. 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 BS present. Results & Data Results & Data Vital Signs (Past 12 Hours) Vital Signs Temp Pulse Pulse Resp BP BP Pulse Ox 01/15/25 13:54 36.7 C 68 18 130/65 98 01/15/25 13:20 74 16 138/70 98 01/15/25 13:05 70 16 131/74 98 01/15/25 11:22 74 16 131/74 98 01/15/25 11:13 36.6 C 53 L 18 120/69 96 01/15/25 07:05 36.5 C 54 L 18 121/77 96 01/15/25 04:01 65 01/15/25 03:45 36.7 C 64 18 135/73 98 01/15/25 03:38 36.7 C 64 18 135/73 98 01/15/25 02:55 55 L 16 105/71 95 O2 Del Method 01/15/25 13:54 Room Air 01/15/25 13:20 Room Air 01/15/25 13:05 Room Air 01/15/25 11:22 Room Air 01/15/25 11:13 Room Air 01/15/25 07:05 Room Air 01/15/25 04:01 01/15/25 03:45 Room Air 01/15/25 03:38 Room Air 01/15/25 02:55 Room Air PG Care Time/CCT Total # of Minutes Spent Total Time Spent with Patient: Total time spent is greater than 50% in coordination of care (as documented) at patient's floor/unit and/or counseling patient: Coding Level of Care Code 11778 SUB INP/OBS CARE 3/50MIN Diagnoses Non-ST elevated myocardial infarction (non-STEMI) I21.4 Hypertension I10 Hyperlipidemia E78.5 CAD (coronary artery disease) I25.10
--- NOTE | 2025-01-15 16:44 | Electrocardiogram Report ---
Test Reason : Blood Pressure : */* mmHG Vent. Rate : 78 BPM Atrial Rate : 78 BPM P-R Int : 150 ms QRS Dur : 78 ms QT Int : 380 ms P-R-T Axes : 70 32 73 degrees QTcB Int : 433 ms Normal sinus rhythm Poor R wave progression, consider anterior GA vs. lead placement vs. LVH Abnormal ECG When compared with ECG of 14-Jan-2025 23:04, (unconfirmed) ST no longer depressed in Lateral leads Confirmed by Ken Garcia ([id number]) on 01/15/2025 4:44:21 PM Referred By: REFERRED SELF Confirmed By: Ken Garcia
[2025-01-16 06:53] LABS: Basophils # (auto) 0.05 K/uL (0.00-0.20); Basophils % (auto) 0.5 %; Eosinophils # (auto) 0.53 K/uL (0.00-0.50); Eosinophils % (auto) 5.1 %; Hematocrit (blood only) 41.1 % (42.0-52.0); Hemoglobin 14.3 g/dl (14.0-18.0); Immature Granulocytes # (auto) 0.03 K/uL (0.01-0.20); Immature Granulocytes % (auto) 0.3 %; Lymphocytes # (auto) 3.13 K/uL (1.20-3.40); Lymphocytes % (auto) 29.8 %; Mean Corpuscular Hemoglobin 28.4 pg (25.0-34.0); Mean Corpuscular Hgb Conc 34.8 g/dL (32.0-36.0); Mean Corpuscular Volume 81.7 fL (80.0-100.0); Mean Platelet Volume 11.4 fL (9.4-12.4); Monocytes # (auto) 0.89 K/uL (0.11-0.59); Monocytes % (auto) 8.5 %; Neutrophils # (auto) 5.86 K/uL (1.40-6.50); Neutrophils % (auto) 55.8 %; Platelet Count 177 K/uL (130-400); RDW Coefficient of Variation 12.3 % (11.5-14.5); RDW Standard Deviation 36.1 fL (36.4-46.3); Red Blood Count 5.03 M/uL (4.70-6.10); White Blood Count 10.49 K/ul (4.8-10.8)
[2025-01-16 06:56] VITALS: RESP 18; TEMP 98.2; O2SAT 97
[2025-01-16 07:11] LABS: BUN Creatinine Ratio 14.3 (10-20); Calcium 9.1 mg/dl (8.6-10.3); Creatinine Clr Calc Pharmacy 52.9 ml/min; Potassium 4.6 mmol/L (3.5-5.1)
[2025-01-16 07:25] LABS: Estimated Average Glucose 123 mg/dl; Hemoglobin A1C 5.9 % (4.5-5.6)
--- NOTE | 2025-01-16 07:52 | Discharge Summary ---
Discharge Summary Date of Service January 16, 2025 Principal Dx & Hospital Course #1 = Principal Diagnosis (1) Non-ST elevated myocardial infarction (non-STEMI): (2) Hypertension: (3) Hyperlipidemia: (4) CAD (coronary artery disease): Plan 59-year-old male with history of coronary artery disease status post anterior STEMI in July 2024, status post JESSI x 2 to LAD, residual disease as well as hypertension and hyperlipidemia presenting with 4 days of intermittent left- sided chest pain. Pain has been increasing in frequency and severity over the last several days, particularly bad tonight which prompted patient to seek me dical attention. Dynamic EKG changes noted specifically with ST depressions present in lateral leads when patient has pain. Troponin has increased from 66.8--> -111 over 2 hours. NSTEMI Worsening chest pain in the last week, 9/10 sternal and left-sided chest pain prior to admission, lateral ST depressions, and elevated troponin on ER evaluation Echo: EF 50-55%, severely hypokinetic apical septum. Remaining apical segments, mid anteroseptum mildly hypokinetic. Normal RV size and function. No significant changes compared to 10/06/2024 Troponin trend following admission 66, 111, 264. Was heparinized overnight with resolution of pain S/p cardiac catheterization 01/15/2025. Multivessel CAD, 98% proximal OM 2, prior mid LAD/proximal stents patent, 90% ostial RPDA stent stable from prior. Successful PCI of mid circumflex to OM 2 with JESSI. PTCA of jailed distal AV groove with 2.0 balloon by interventional cardiology Aspirin/Brilinta DAPT x 1 year. ARB continued. Beta-kameron dose reduced for bradycardia. Continue Toprol succinate 12.5 mg by mouth daily as an outpatient Continue statin. Last lipid panel 10/05/2024: Triglycerides 121, cholesterol 125, LDL 67. A1c 5.9%, continue outpatient follow-up CAD History of 2 JESSI to LAD 2023 Management of NSTEMI as noted, continue medications as noted #Hypertension Continue losartan. . #Hyperlipidemia Continue Crestor 20 mg p.o. every morning #GERD Continue Protonix 40 mg p.o. twice daily Admission HPI Per Admitting Provider Tiennyasia Samayoa Is a 59-year-old male presenting with chest pain. Patient with history of hypertension, hyperlipidemia, coronary artery disease status post acute CO in July 2024 with JESSI x 2 to LAD. Patient still with residual coronary disease involving the OM 50% proximal and 90% ostial RPDA vessels. Ischemic cardiomyopathy with EF of 45% with apical wall motion abnormalities. Ejection fraction has improved to 55% on most recent echo in October 2024. Patient reports he is compliant with his medications and continues to take his DAPT with Brillinta and ASA as directed. Patient reports that over the last 4 days he has been having intermittent episodes of left-sided chest pain. He describes the pain as severe pressure, occasionally stabbing in nature. Nonradiating but is at times position alpatient states that when he lays flat on his back the pain is significantly worse. He also reports that the pain is exertional to the point where if he walks at an increased pace he gets severe pain which is relieved with rest. the pain lasts anywhere from 10 to 30 minutes and is associated with shortness of breath. Today the pain has become more severe and more frequent. He had an episode in the morning as well as the afternoon and has had several episodes of chest pain this evening which prompted him to seek medical care. Serial EKGs from EMS as well as ER appear to have infero-lateral ST depressions present with episodes of pain and hypertension. Patient markedly hypertensive at the time of chest pain prior to arrival. Patient reports the pain is much improved after receiving Nitro. Presently chest pain free. NO additional complaints - patient denies trauma, cough, fever, chills, nausea, vomiting, diarrhea, weight gain, orthopnea, edema ,dizziness or syncope. ER Course: Nitro 0.5 inch paste Nitro 0.4mg x 2 NSS at 80mL/hr Fentanyl 50mcg IV x 2 Zofran 4mg IV Heparin bolus and gtt per protocol Discharge Exam General: A&Ox3. NAD. Cooperative. HEENT: Atraumatic, normocephalic. Vision and hearing grossly intact Pulm: CTAB A&P. -wheezes, -rales, -rhonchi. Symmetrical chest rise. No increased work of breathing. No respiratory distress. Cardiac: RRR, -mrg. Radial pulses intact and symmetrical. Abdominal: Nontender, nondistended, soft. BS present. Extremities: Right radial pulse intact, diamond wheel edger strength 5/5, sensation of soft touch intact in hands bilaterally without deficit/asymmetry. Cap refill intact. No hematoma at catheter access site Discharge Plan Discharge Items Patient Disposition: Home - Self-Care Reason For Visit: UNSTABLE ANGINA Discharge Diagnosis: NSTEMI Activity: Per Instructions section Non-emergency contact: Primary Care Provider and Risk Advisor Call non-emergency contact if: you have any medication questions, your symptoms worsen and your pain is not controlled Follow-up/Referrals: Ken Rhodes MD [Physician] - Keshawn Kowalski DO [Primary Care Provider] - Diet: Heart Healthy Addtl Attending Provider Instructions: You are seen in the hospital for an NSTEMI, a type of heart attack. You underwent a cardiac catheterization which found a blockage of a blood vessel called the OM 2. You had successful stent placement of a drug-eluting cardiac stent to the OM 2 with improvement. Please continue to take aspirin 81 mg daily, and Brilinta 90 mg twice daily for at least 1 year. This is called dual antiplatelet therapy and is critical for protecting your new stent. Please continue to take losartan 25 mg daily (one half 50 mg tablet) in the morning. Your metoprolol has been dose reduced due to slow heart rate while in the hospital. Please take metoprolol succinate 12.5 mg by mouth once daily in the morning. Your manager monitoring may adjust this medication depending on your heart rate and blood pressure as an outpatient. You have any lightheadedness, dizziness or feeling like you will pass out or a heart rate that is consistently less than 60 please stop taking this medication temporarily and contact your primary care provider or manager monitoring for recommendations. You have been prescribed sublingual nitroglycerin which you can use for mild chest pain. If you have any persistent or recurrent chest pain please seek immediate medical attention If you develop any new or worsening symptoms including fever, chills, sweats, chest pain, chest pressure, difficulty breathing, uncontrolled nausea/vomiting, rash, wheezing, passing out or nearly passing out, bleeding, black/bloody bowel movements, or other new or concerning symptoms please call your primary care physician, or call 911 for re-evaluation in the emergency department if you are very concerned. Pending Studies at Discharge: No Stand-Alone Forms: [employer], Smoking Cessation Medications and DC Order Prescriptions: New metoprolol succinate 50 mg Tablet Extended Release 24 Hr 12.5 mg PO QAM Qty: 15 0RF nitroglycerin 0.4 mg tablet, sublingual 0.4 mg sublingual Q15M Qty: 30 0RF Rx Instructions: for chest pain. If needing persistently/recurrently seek immediate medical reattention Continued aspirin 81 mg tablet,delayed release (DR/EC) 81 mg PO QAM 30 Days Qty: 90 3RF pantoprazole 40 mg tablet,delayed release (DR/EC) 40 mg PO BID 30 Days Qty: 180 3RF losartan 50 mg tablet 25 mg PO QAM 90 Days Qty: 45 3RF rosuvastatin 20 mg tablet 20 mg PO QAM Qty: 90 3RF Brilinta 90 mg tablet 90 mg PO BID 30 Days Qty: 180 3RF trazodone 50 mg tablet 50 mg PO DAILY Qty: 90 2RF Discontinued metoprolol succinate 50 mg tablet extended release 24 hr 50 mg PO DAILY Qty: 90 3RF Brilinta 90 mg tablet 90 mg PO 2XD Discharge Orders: Discharge Order (Routine); Ordered 01/16/25 Ordered By: Bert Virk Admission Data Admit Date/Time: 01/14/25 23:53 Attending Provider: Tesha Jeffrey Admit Provider: Tesha Jeffrey Primary Care Provider: Keshawn Kowalski Other Providers: Clifford eNumann; Tesha Jeffrey Hospital Stay Data Consultations 01/14/25 22:50 ED Decision to Admit Stat 01/14/25 23:53 Consult Cardiology Routine Procedures Performed Operation Date: 01/15/25 12:00 Actual Procedures p Cineradiography w/Routine Exam - Ken Rhodes MD p Cath, Left with Cors and Vent - Ken Rhodes MD p Drug Eluting Stent SGl Vessel - Ken Rhodes MD s POBA each ADDTL Vessel - Ken Rhodes MD Diagnostic Imagining Performed 01/15/25 08:28 CL Cath Imgs for PACS use only Routine Pending Results Patient Have Any Pending Studies at Discharge: No Discharge Instructions Given to Patient (Per Discharging Provider) You are seen in the hospital for an NSTEMI, a type of heart attack. You underwent a cardiac catheterization which found a blockage of a blood vessel called the OM 2. You had successful stent placement of a drug-eluting cardiac stent to the OM 2 with improvement. Please continue to take aspirin 81 mg daily, and Brilinta 90 mg twice daily for at least 1 year. This is called dual antiplatelet therapy and is critical for protecting your new stent. Please continue to take losartan 25 mg daily (one half 50 mg tablet) in the morning. Your metoprolol has been dose reduced due to slow heart rate while in the hospital. Please take metoprolol succinate 12.5 mg by mouth once daily in the morning. Your manager monitoring may adjust this medication depending on your heart rate and blood pressure as an outpatient. You have any lightheadedness, dizziness or feeling like you will pass out or a heart rate that is consistently less than 60 please stop taking this medication temporarily and contact your primary care provider or manager monitoring for recommendations. You have been prescribed sublingual nitroglycerin which you can use for mild chest pain. If you have any persistent or recurrent chest pain please seek immediate medical attention If you develop any new or worsening symptoms including fever, chills, sweats, chest pain, chest pressure, difficulty breathing, uncontrolled nausea/vomiting, rash, wheezing, passing out or nearly passing out, bleeding, black/bloody bowel movements, or other new or concerning symptoms please call your primary care physician, or call 911 for re-evaluation in the emergency department if you are very concerned. Total Time Total Time Spent Total Time Spent (In Minutes): Time spend day of discharge 25 minutes including direct patient care, documentation, review of labs and images, and coordination of care. Coding Level of Care Code 02416 INP/OBS DISCH >30 MIN Diagnoses Non-ST elevated myocardial infarction (non-STEMI) I21.4 Hypertension I10 Hyperlipidemia E78.5 CAD (coronary artery disease) I25.10
[2025-01-16] MEDS: LOSARTAN POTASSIUM 25 MG TAB PO SCH (08:01)
[2025-01-16] MEDS: METOPROLOL SUCC 25MG EXT REL TAB PO SCH (08:01)
--- NOTE | 2025-01-16 09:29 | Cardiology Progress Note ---
Date of Service January 16, 2025 Assessment & Plan (1) Non-ST elevated myocardial infarction (non-STEMI): Plan: 2. CAD Post JESSI to OM/125 -- Acute [place] post 2 JESSI to LAD 07/2024 --Residual ostial RPDA disease 2. Ischemic cardiomyopathyEF 45%, apical wall motion abnormalityEF 55% 01/2025 3. HypertensionARB, BB 4. DyslipidemiaLDL 67 10/2024 5. Mild aortic regurgitation, mild mitral regurgitation - echo 01/2025 Doing well following PCI yesterday. No recurrent chest pain. Hemodynamically stable. No events on telemetry. No apparent access site complications. From a cardiac standpoint okay with discharge today. Continue DAPT with aspirin, ticagrelor Continue current statin. Continue current losartan. Home on reduced Toprol-XL in the setting of relative sinus bradycardia yesterday in the 50s. Likely increased back to 25 mg as an outpatient. Follow-up in 1 to 2 weeks. Further discussion of cardiac rehab at that time. Admission and Anticipated Discharge Date Admission Date: January 14, 2025 Subjective Feeling well this morning. No chest pain overnight. Telemetry reviewedsinus rhythm Review of Systems Review of Systems: All systems reviewed & are unremarkable except as noted in HPI & below Physical Exam Physical Exam: General: Comfortable HEENT: Sclerae anicteric Lungs: Clear to auscultation bilaterally, no crackles or wheezes Cardiac: Regular rate and rhythm, no murmurs. Vascular: Right radial artery access site with no ecchymosis, hematoma. Distal pulse and sensation intact. Abdomen: Soft, nontender Extremities: Well perfused, no peripheral edema Neuro: Nonfocal Psych: Alert orient x3, normal affect and mood Results & Data Vital Signs (Past 12 Hours) Vital Signs Temp Pulse Pulse Pulse Resp BP Pulse Ox 01/16/25 07:21 67 01/16/25 06:55 98.2 F 62 18 123/78 97 01/16/25 03:11 98.4 F 70 16 111/73 96 01/15/25 23:02 98.2 F 71 18 146/85 H 98 01/15/25 22:01 52 L O2 Del Method 01/16/25 07:21 01/16/25 06:55 Room Air 01/16/25 03:11 Room Air 01/15/25 23:02 Room Air 04/14/25 22:01 PG Care Time/CCT Total # of Minutes Spent Total Time Spent with Patient: Total time spent is greater than 50% in coordination of care (as documented) at patient's floor/unit and/or counseling patient: Coding Level of Care Code 28846 SUB INP/OBS CARE 2/35MIN Diagnoses Non-ST elevated myocardial infarction (non-STEMI) I21.4
[2025-01-16 11:21] VITALS: BP 131/74; PULSE 71
--- NOTE | 2025-01-16 11:54 | Electrocardiogram Report ---
Test Reason : Blood Pressure : */* mmHG Vent. Rate : 76 BPM Atrial Rate : 76 BPM P-R Int : 138 ms QRS Dur : 84 ms QT Int : 372 ms P-R-T Axes : 57 24 76 degrees QTcB Int : 418 ms Normal sinus rhythm with sinus arrhythmia Abnormal ECG When compared with ECG of 14-Jan-2025 21:38, No significant change was found Confirmed by Ken Garcia ([id number]) on 01/16/2025 11:54:30 AM Referred By: REFERRED SELF Confirmed By: Ken Garcia
== END 2025-01-16 11:52 | disposition home or self-care (01) | DRG 322 ==
LOC: SUATTDRO → ED 21:25 → 2S 23:53